=== PATIENT | female | born 1950 | race Caucasian/White ===

== ENCOUNTER → 2016-08-03 | Outpatient (CLI) | payer OTHER ==
[~2016-08-03] VITALS: Ht 154.9 cm; Wt 107.8 kg
[~2016-08-03] MED LIST: AMITRIPTYLINE H10 M3 PO; APAP500 PO; ASPIR 8181 MG PO; BRILINTA90 MG PO; CELEBREX 200 M200 M1 PO; CELEXA20 MG PO; COENZYME Q10200 M2 PO; COMPOUND CREAM; COREG6.25 MG PO; DICLOFENAC SOD100 GM TP; FUROSEMIDE 20 M20 M1 PO; HYDROCODONE-AP1 EAC2 PO; KEFLEX250 MG PO; LEXAPRO20 MG PO; LIPITOR 20 MG T20 M1 PO; LYRICA150 MG PO; MELATONIN1 MG PO; MOBIC15 MG; MOBIC15 MG PO; MS CONTIN 30 MG30 M1 PO; MS CONTIN15 MG PO; MUCINEX TA600 MG/TA2 PO; OXYCODONE-APAP1 EAC6 PO; PERCOCET 7.5-31 EACH; PERCOCET 7.5-31 EACH PO; PRILOSEC 20 MG20 MG PO; SINGULAIR 10 MG10 M1 PO; TORSEMIDE5 MG PO; TOVIAZ4 M1 PO; VENTOLIN HFA 1818 GM INH; VESICARE10 M1 PO; VOLTAREN50 MG PO
--- NOTE | ~2016-08-03 | HPC ---
[facility] [place] [address] PAIN MANAGEMENT CONSULTATION Name: MADDY HERNANDES Room #: REG Petros Randall#: [id number] Admission: 08/03/16 Attend Phys: Marcos Angeles DO Discharge: Date of : 48 Report #: [id number] THIS REPORT FOR: //name// CC: Gerardo Angeles The patient is a 66-year-old female being treated for lumbar radiculopathy, DJD affecting right knee, requiring complex medication management. The patient was last seen in the pain clinic by my partner, Dr. Pulido in my absence, 07/07/2016, he renewed her Voltaren gel and Percocet 7.5/325 one tablet 3-4 times a day, limit 100 tablets for 30 days. Last seen in the pain clinic 04/17/2016. She returns to pain clinic today noting medications are providing sufficient analgesia to participate in activities of daily living. Last urine drug screen 04/17/2016, was positive for prescribed medication including oxycodone, citalopram, diclofenac, and dextromethorphan. The patient notes while medications are assisting with chronic pain issues, specifically right knee, she would like to repeat a series of Synvisc injections, which we had accomplished about 3 years ago with overall efficacy. She does have lumbar radicular pain and has a spinal cord stimulator, which is helpful. She has had some chronic osteomyelitis in the right ankle, multiple surgeries and now limited range of motion, this was from about the year 1999. Today; however, she does have an intercurrent urinary tract infection and is on Keflex presently. Overall, the patient rates the pain as 7/10 on the knee, 2/10 on the ankle. We reviewed the fact that opiate medications are being used to provide analgesia adequate to support activities of daily living, not attempting to achieve a specific pain score on the 0-10 Visual Analog Scale. The current opiate medications are providing sufficient analgesia to allow the patient to participate in activities of daily living. The patient is not exhibiting any aberrant behavior suggestive of drug diversion. The patient is not having any adverse reactions to medications. The patient is not suffering from daytime somnolence or mental acuity changes. The patient is managing opiate-induced constipation with appropriate smhp-gqg-irmqmhd agents and dietary considerations. The patient was counseled on concern for caution with operating a motor vehicle while using opiate medications. A physical exam was performed and the patient's functional status was evaluated. All patients with back pain were advised against the bed rest greater than 4 days and were advised to return to normal activities. Pain score assessment was noted and the treatment plan was reviewed with the patient. All current medications, both prescribed and OTC were reviewed and reconciled on the electronic medical record. Tobacco screening was accomplished and smoking cessation was advised when indicated. BMI was noted and diet/exercise modification was recommended for all patients following outside normal [address] [address] PAIN MANAGEMENT CONSULTATION Name: MADDY HERNANDES Room #: REG VIOLA Randall#: [id number] Admission: 08/03/16 Attend Phys: Marcos Angeles DO Discharge: Date of : 48 Report #: [id number] parameters. I reviewed with the patient today their responsibilities to safeguard prescription medications, reviewed their responsibility to utilize medications only as prescribed by the physician. They are to seek and receive pain medications only from 1 physician group ([facility]). They are to use 1 pharmacy and keep the clinic informed if they change pharmacies. Their responsibilities include making followup visits in a timely fashion and to avoid abrupt discontinuation of medication usage. Their responsibilities further include bringing their medications (bottles from the pharmacy with residual pills) to the visit for possible confirmation of pill counts and the patient understands it is their responsibility to submit to random drug screens to ensure both that the medications prescribed are present, and that no other controlled substances are present. All prescriptions provided today were generated electronically. PHYSICAL EXAMINATION: Shows a 66-year-old female, BMI is 44.9 kg/m2. Vital signs stable as noted on the EMR. Alert and oriented to person, place, and time, judged to be a reasonable historian, complaining of pain in the right knee. Physical exam shows no ballotable edema, ligaments are intact, there is some crepitance with the deviation of the patella. ASSESSMENT: Symptomatic lumbar radiculopathy, degenerative joint disease affecting right knee, requiring complex medication management. RECOMMENDATION: 1. After discussion, we have elected to continue Percocet 7.5/325 one tablet 3-4 times a day, limit 100 tablets for 30 days, taken the liberty of writing for three prescriptions to release today, 4 weeks, and 8 weeks. 2. We will plan on moving forward with repeat Synvisc injection series starting next week. Prior injection in 2012 afforded excellent relief. <ELECTRONICALLY SIGNED> By: Marcos Angeles DO 08/05/16 0729 [id number] Marcos Angeles DO /nt
[2016-08-03 11:31] VITALS: BP 125/76
== END | disposition home or self-care (01) ==
LOC: PAIN 07:05
DX: M17.11 Unilateral primary osteoarthritis, right knee (principal); M54.16 Radiculopathy, lumbar region; G89.29 Other chronic pain

== ENCOUNTER → 2016-08-10 | Outpatient (CLI) | payer OTHER ==
[~2016-08-10] VITALS: Ht 154.9 cm; Wt 109.8 kg
--- NOTE | ~2016-08-10 | HPC ---
[facility] [place] [address] PAIN MANAGEMENT CONSULTATION Name: MADDY HERNANDES Room #: REG [facility] Prakash#: [id number] Admission: 08/10/16 Attend Phys: Marcos Angeles DO Discharge: Date of : 48 Report #: [id number] THIS REPORT FOR: //name// CC: Gerardo Angeles The patient is a very pleasant 66-year-old female, well known to the pain clinic, being treated for lumbar radiculopathy, DJD affecting right knee, chronic pain syndrome requiring complex medication management. She has been stable on baseline dose of medication for some time. She had a series of 3 Synvisc injections in 2012 in her right knee with significant overall improvement of pain. Pain has began to recur. At last visit, we renewed the patient's chronic pain medications and elected to proceed with a series of 3 Synvisc injections on that right knee again. ASSESSMENT: Symptomatic degenerative joint disease, right knee, subjective pain score is about a 4-6 on a 0-10 visual analog scale. PROCEDURE: Right knee injection under fluoroscopy, Synvisc #1. DESCRIPTION OF PROCEDURE: After risk and benefits were discussed including risk of infection and increased knee pain, the patient wished to proceed. She was taken to the fluoroscopy suite, placed in the supine position with a bolster under the right knee. Wide surgical prep and drape was accomplished. Skin wheal with Xylocaine was raised. A 20-gauge Angiocath was placed from a superior lateral point of origin in an inferior medial trajectory under the patella. Negative aspiration was accomplished. 2 mL of Synvisc (hyaline G-F 20) was injected. The Angiocath was removed, area was cleansed and Band-Aids applied. The patient was monitored for an appropriate period of time, discharged in good and stable condition. Told to use ice to the area today. Watch for signs of infection. Follow up in 1 week for #2 in a series of 3. <ELECTRONICALLY SIGNED> By: Marcos Angeles DO 08/14/16 0811 [id number] Marcos Angeles DO /nt
[2016-08-10 10:17] VITALS: BP 128/60
== END | disposition home or self-care (01) ==
LOC: PAIN 07:01
DX: M17.11 Unilateral primary osteoarthritis, right knee (principal); M54.16 Radiculopathy, lumbar region; G89.4 Chronic pain syndrome

== ENCOUNTER → 2016-11-20 | Outpatient (CLI) | payer OTHER ==
[~2016-11-20] VITALS: Ht 154.9 cm; Wt 103.4 kg
[~2016-11-20] MED LIST changes: +MOBIC7.5 MG PO; +OXYBUTYNIN CHLO15 MG PO
--- NOTE | ~2016-11-20 | HPC ---
[facility] [address] [address] PAIN MANAGEMENT CONSULTATION Name: MADDY HERNANDES Room #: REG [facility] Margarito.#: [id number] Admission: 11/20/16 Attend Phys: Marcos Angeles DO Discharge: Date of : 49 Report #: [id number] THIS REPORT FOR: //name// CC: Gerardo Angeles DATE OF SERVICE: 11/20/2016 The patient is a 66-year-old female being treated for chronic DJD bilateral knees, status post left total knee arthroplasty with ongoing right knee degenerative joint disease. We did a series of 3 Synvisc injections, the last one being 08/24/2016 on the right knee with unfortunately only short term relief. Returns to pain clinic today. She continues to take Percocet 7.5/325 one tablet 3-4 times a day, 100 tablets for 30 days, provide sufficient analgesia to participate in activities of daily living. Subjective pain score is 3-4/10. Last urine drug screen in April was positive for prescribed medications. Returns to pain clinic today noting she is having increasing pain in the left knee. She had a total knee arthroplasty 6 years ago, had progressed from wheelchair to walker to cane and was actually doing fairly well for cane in 2-3 years, but about 3 years ago, pain got significantly worse. She has been using a walker since that time. On physical exam, she has passive full extension of the left leg, but only actively, she can extend the lower extremity about 45 degrees. She follows up with her orthopedist and feels that she may have disruption over the quadriceps muscles. She has a followup appointment at Orthopedics since January. Otherwise, she notes pain continues 3-4 on a 0-10 visual analog scale. She uses a spinal cord stimulator for chronic axial back pain. Pain medication helps with peripheral pain. PHYSICAL EXAMINATION: Shows 66-year-old female, obese, with a BMI of 43.1 kilograms per meter squared. Blood pressure and vital signs are stable as noted on the EMR. She is in a wheelchair, alert and oriented to person, place, and time, judged to be a reasonable historian. Again, left leg does show diminished active extension, right knee still has pain with movement. We reviewed the fact that opiate medications are being used to provide analgesia adequate to support activities of daily living, not attempting to achieve a specific pain score on the 0-10 Visual Analog Scale. The current opiate medications are providing sufficient analgesia to allow the patient to participate in activities of daily living. The patient is not exhibiting any aberrant behavior suggestive of drug diversion. [place] [address] PAIN MANAGEMENT CONSULTATION Name: MADDY HERNANDES Room #: REG [facility] Prakash#: [id number] Admission: 11/20/16 Attend Phys: Marcos Angeles DO Discharge: Date of : 48 Report #: [id number] adverse reactions to medications. The patient is not suffering from daytime somnolence or mental acuity changes. The patient is managing opiate-induced constipation with appropriate erwd-bdz-msnwyxn agents and dietary considerations. The patient was counseled on concern for caution with operating a motor vehicle while using opiate medications. A physical exam was performed and the patient's functional status was evaluated. All patients with back pain were advised against the bed rest greater than 4 days and were advised to return to normal activities. Pain score assessment was noted and the treatment plan was reviewed with the patient. All current medications, both prescribed and OTC were reviewed and reconciled on the electronic medical record. Tobacco screening was accomplished and smoking cessation was advised when indicated. BMI was noted and diet/exercise modification was recommended for all patients following outside normal parameters. I reviewed with the patient today their responsibilities to safeguard prescription medications, reviewed their responsibility to utilize medications only as prescribed by the physician. They are to seek and receive pain medications only from 1 physician group ( [facility]). They are to use 1 pharmacy and keep the clinic informed if they change pharmacies. Their responsibilities include making followup visits in a timely fashion and to avoid abrupt discontinuation of medication usage. Their responsibilities further include bringing their medications (bottles from the pharmacy with residual pills) to the visit for possible confirmation of pill counts and the patient understands it is their responsibility to submit to random drug screens to ensure both that the medications prescribed are present, and that no other controlled substances are present. All prescriptions provided today were generated electronically. ASSESSMENT: Symptomatic degenerative joint disease, bilateral knees; chronic pain syndrome; lumbar radiculopathy with neuropathic pain component requiring complex medication management. RECOMMENDATIONS: 1. Continue spinal cord stimulator unchanged. 2. Continue Percocet 7.5/325 one tablet 3-4 times a day, limit 100 tablets for 30 days. Follow up with Orthopedics at . I will be happy to see her on an as needed basis. <ELECTRONICALLY SIGNED> By: Marcos Angeles DO 11/25/16 0758 1205 1925 Marcos Angeles DO /nt
[2016-11-20 10:59] VITALS: BP 120/65
== END ==
LOC: PAIN 07:05
DX: M17.0 Bilateral primary osteoarthritis of knee (principal); M54.16 Radiculopathy, lumbar region; G89.4 Chronic pain syndrome; Z96.89 Presence of other specified functional implants; Z88.8 Allergy status to other drugs, medicaments and biological substances

== ENCOUNTER → 2017-02-19 | Outpatient (CLI) | payer OTHER ==
[~2017-02-19] VITALS: Ht 154.9 cm; Wt 115.1 kg
[~2017-02-19] MED LIST changes: +CIPRO500 MG PO
--- NOTE | ~2017-02-19 | HPC ---
[facility] [place] [address] PAIN MANAGEMENT CONSULTATION Name: MADDY HERNANDES Room #: REG [facility] Margarito.#: [id number] Admission: 02/19/17 Attend Phys: Marcos Angeles DO Discharge: Date of : 49 Report #: [id number] THIS REPORT FOR: //name// CC: Gerardo Angeles HISTORY OF PRESENT ILLNESS: The patient is a very pleasant 66-year-old female being treated for DJD bilateral knees, axial back pain requiring complex medication management. Last seen in the pain clinic 11/20/2016, continue Percocet 7.5/325 one tablet 3-4 times a day. Last urine drug screen 04/17/2016 was positive for prescribed medications. She returns to pain clinic today. She had an appointment to see orthopedic at regarding her right knee (status post left total knee arthroplasty in the distant past). Unfortunately, this got canceled, that is her surgeon relocated. She has, however, seen Dr. Solares at [facility]. He has suggested that there is still some problems with a left total knee arthroplasty, she is unable to fully extend the leg. He feels that there may be some problem with patellar and/or infrapatellar ligament. They are tentatively planning to revise the left knee arthroplasty and then move forward with the right total knee arthroplasty at some distant point. Complicating matter is however, is the fact that around 01/12/2017, patient fell, developed lesions on her right ankle anterior aspect. Apparently, she tripped over her walker and sounds like that the wound may have been contaminated with some debris. It has now been 6 weeks she still has an open wound. They cultured the wound recently and in the cultured they found some shard plastic. She currently is on antibiotic ( ciprofloxacin 500 mg b.i.d.) I reviewed the lesion today, remains open with a kelsey modestly purulent discharge. I am very concerned that this is still secondary infected and given history may actually still have some contaminant inside. Strongly suggest she follow up with the wound clinic. I would suspect that the orthopedic surgeon will want her to have several weeks of zero drainage on no antibiotics to ensure that there is no residual infection of the ankle before he would consider revising that left total knee arthroplasty. We talked about this at length today. She is seen in the company of her who is supportive. She was seen for prolonged visit from 12:58-13:25. Greater than 50% of this 25 plus minute visit was spent counseling the patient, reviewing therapeutic options, discussing risks and benefits of proceed with surgery. Again, my biggest concern presently is getting that small lesion of the right ankle anterior aspect cleared up. We reviewed the fact that opiate medications are being used to provide analgesia [address] [address] PAIN MANAGEMENT CONSULTATION Name: MADDY HERNANDES Room #: REG VIOLA Randall#: [id number] Admission: 02/19/17 Attend Phys: Marcos Angeles DO Discharge: Date of : 48 Report #: [id number] adequate to support activities of daily living, not attempting to achieve a specific pain score on the 0-10 Visual Analog Scale. The current opiate medications are providing sufficient analgesia to allow the patient to participate in activities of daily living. The patient is not exhibiting any aberrant behavior suggestive of drug diversion. The patient is not having any adverse reactions to medications. The patient is not suffering from daytime somnolence or mental acuity changes. The patient is managing opiate-induced constipation with appropriate jriy-tgh-bmxqfpm agents and dietary considerations. The patient was counseled on concern for caution with operating a motor vehicle while using opiate medications. A physical exam was performed and the patient's functional status was evaluated. All patients with back pain were advised against the bed rest greater than 4 days and were advised to return to normal activities. Pain score assessment was noted and the treatment plan was reviewed with the patient. All current medications, both prescribed and OTC were reviewed and reconciled on the electronic medical record. Tobacco screening was accomplished and smoking cessation was advised when indicated. BMI was noted and diet/exercise modification was recommended for all patients following outside normal parameters. I reviewed with the patient today their responsibilities to safeguard prescription medications, reviewed their responsibility to utilize medications only as prescribed by the physician. They are to seek and receive pain medications only from 1 physician group ( [facility]). They are to use 1 pharmacy and keep the clinic informed if they change pharmacies. Their responsibilities include making followup visits in a timely fashion and to avoid abrupt discontinuation of medication usage. Their responsibilities further include bringing their medications (bottles from the pharmacy with residual pills) to the visit for possible confirmation of pill counts and the patient understands it is their responsibility to submit to random drug screens to ensure both that the medications prescribed are present, and that no other controlled substances are present. All prescriptions provided today were generated electronically. Physical exam is otherwise unchanged, 66-year-old female, quite obese with a BMI of kilograms per meter squared. Vital signs are otherwise stable. She is afebrile. Again, still draining is somewhat purulent substance from the right ankle. Albeit, the lesion itself is small less than a centimeter. Moderately obese woman, I was unable to palpate any adenopathy. Discharged in good stable condition today. I have taken the liberty of renewing her scheduled II narcotic, Percocet 7.5/325 one tablet up to 3-4 times a day, [facility] [address] [place] [address] PAIN MANAGEMENT CONSULTATION Name: MADDY HERNANDES Room #: REG [facility] Prakash#: [id number] Admission: 02/19/17 Attend Phys: Marcos Angeles DO Discharge: Date of : 48 Report #: [id number] limit 100 tablets for 30 days. We will follow up in 3 months for reevaluation, earlier if needed. <ELECTRONICALLY SIGNED> By: Marcos Angeles DO 02/22/17 0908 1320 1350 Marcos Angeles DO /nt
[2017-02-19 12:49] VITALS: BP 143/71
== END | disposition home or self-care (01) ==
LOC: PAIN 07:22
DX: M17.0 Bilateral primary osteoarthritis of knee (principal); Z79.899 Other long term (current) drug therapy

== ENCOUNTER → 2017-06-28 | Outpatient (CLI) | payer OTHER ==
[~2017-06-28] VITALS: Ht 154.9 cm; Wt 71.0 kg
--- NOTE | ~2017-06-28 | HPC ---
[facility] [place] [address] PAIN MANAGEMENT CONSULTATION Name: MADDY HERNANDES Room #: REG VIOLA Randall#: [id number] Admission: 06/28/17 Attend Phys: Marcos Angeles DO Discharge: Date of : 48 Report #: [id number] THIS REPORT FOR: //name// CC: Gerardo Angeles HISTORY OF PRESENT ILLNESS: The patient is a 66-year-old female typically treated for osteoarthritis affecting bilateral knees, right greater than left (status post left total knee arthroplasty with still ongoing decreased range of motion), lumbar radiculopathy requiring high risk complex medication management. Last visit 06/09/2017, she saw my partner, Dr. Jaylen Pulido in my absence. I have last seen her back in February. He returns to pain clinic today noting pain medications continue to be helpful, she takes Percocet 7.5/325 one tablet 3-4 times a day, uses Voltaren gel topically. Left knee still has diminished range of motion to full extension, about 30 degrees off of complete 180-degree extension. Right leg has better range of motion, but ongoing pain in the knee, there is a little ballotable edema. The patient rates subjective pain score of 4 on a VAS with current medication. No problems with daytime somnolence, mental acuity changes or constipation. We reviewed the fact that opiate medications are being used to provide analgesia adequate to support activities of daily living, not attempting to achieve a specific pain score on the 0-10 Visual Analog Scale. The current opiate medications are providing sufficient analgesia to allow the patient to participate in activities of daily living. The patient is not exhibiting any aberrant behavior suggestive of drug diversion. The patient is not having any adverse reactions to medications. The patient is not suffering from daytime somnolence or mental acuity changes. The patient is managing opiate-induced constipation with appropriate uvrp-xzf-beydevn agents and dietary considerations. The patient was counseled on concern for caution with operating a motor vehicle while using opiate medications. A physical exam was performed and the patient's functional status was evaluated. All patients with back pain were advised against the bed rest greater than 4 days and were advised to return to normal activities. Pain score assessment was noted and the treatment plan was reviewed with the patient. All current medications, both prescribed and OTC were reviewed and reconciled on the electronic medical record. Tobacco screening was accomplished and smoking cessation was advised when indicated. BMI was noted and diet/exercise modification was recommended for all patients following outside normal parameters. [address] [address] PAIN MANAGEMENT CONSULTATION Name: MADDY HERNANDES [facility]: [facility] [id number] Admission: 06/28/17 Attend Phys: Marcos Angeles DO Discharge: Date of : 48 Report #: [id number] I reviewed with the patient today their responsibilities to safeguard prescription medications, reviewed their responsibility to utilize medications only as prescribed by the physician. They are to seek and receive pain medications only from 1 physician group ( [facility]). They are to use 1 pharmacy and keep the clinic informed if they change pharmacies. Their responsibilities include making followup visits in a timely fashion and to avoid abrupt discontinuation of medication usage. Their responsibilities further include bringing their medications (bottles from the pharmacy with residual pills) to the visit for possible confirmation of pill counts and the patient understands it is their responsibility to submit to random drug screens to ensure both that the medications prescribed are present, and that no other controlled substances are present. All prescriptions provided today were generated electronically. ASSESSMENT: 1. Osteoarthritis, bilateral knees, right greater than left. 2. Chronic pain syndrome requiring high risk medication management. 3. History of lumbar radiculopathy record. Last random drug screen was 04/2016. We did obtain a new buccal random drug screen today, no aberrant previous history of drug diversion. We also talked about continuing with MiraLax for opiate-induced constipation. Discharged in good and stable condition. The patient was seen for prolonged visit, greater than 50% of 25-minute visit was spent counseling the patient, reviewing the opiate consent to treat contract, getting the buccal drug swab and counseling regarding current medications. <ELECTRONICALLY SIGNED> By: Marcos Angeles DO 06/30/17 0808 [id number] [id number] Marcos Angeles DO /nt
[2017-06-28 10:38] VITALS: BP 157/87
== END ==
LOC: PAIN 07:07
DX: M17.0 Bilateral primary osteoarthritis of knee (principal); G89.4 Chronic pain syndrome; M54.16 Radiculopathy, lumbar region; Z79.899 Other long term (current) drug therapy

== ENCOUNTER → 2017-10-01 | Outpatient (CLI) | payer OTHER ==
[~2017-10-01] VITALS: Ht 154.9 cm; Wt 119.6 kg
[~2017-10-01] MED LIST changes: +PERCOCET 10-321 EAC1 PO; +PERCOCET 10-321 EACH PO; +PROTONIX40 M1 PO; +TERBINAFINE HC250 MG PO
--- NOTE | ~2017-10-01 | HPC ---
[facility] [place] [address] PAIN MANAGEMENT CONSULTATION Name: MADDY HERNANDES Room #: REG [facility] Margarito.#: [id number] Admission: 10/01/17 Attend Phys: Marcos Angeles DO Discharge: Date of : 49 Report #: [id number] THIS REPORT FOR: //name// CC: Gerardo Angeles DATE OF SERVICE: 10/01/2017 The patient is a 67-year-old female, last seen in pain clinic on 06/28/2017, being treated for osteoarthritis, status post left total knee arthroplasty, has osteoarthritis in the right knee, lumbar radiculopathy requiring complex medication management. Last random drug screen on 06/28/2017 was positive for prescribed medications (that was last visit). She returns to pain clinic today noting pain is a 6-7 on a VAS. Uses a wheelchair to get around due to ongoing pain in the low back and both knees. Notes pain is exacerbated with any weightbearing. She does have a spinal cord stimulator, which helps to some degree. Functional assessment tool score is quite high at 57/70. She is at low risk for opiate diversion, 1/. She signed our opiate consent to treat contract on 01/30/2016. PHYSICAL EXAMINATION: Otherwise shows an obese 67-year-old female, BMI is 49.8 kilograms per meter squared. She is in a wheelchair. Pain across the knees, difficulty with ambulation. We talked about possibly considering a genicular nerve block for primary right lower extremity pain (again, status post left total knee arthroplasty with some improvement of osteoarthritis pain). Given multiple health concerns including morbid obesity, pulmonary compromise, dyslipidemia and hypertension, she is not an excellent surgical candidate for right knee total knee arthroplasty. We reviewed the fact that opiate medications are being used to provide analgesia adequate to support activities of daily living, not attempting to achieve a specific pain score on the 0-10 Visual Analog Scale. The current opiate medications are providing sufficient analgesia to allow the patient to participate in activities of daily living. The patient is not exhibiting any aberrant behavior suggestive of drug diversion. The patient is not having any adverse reactions to medications. The patient is not suffering from daytime somnolence or mental acuity changes. The patient is managing opiate-induced constipation with appropriate yxdk-dst-kqkiyxz agents and dietary considerations. The patient was counseled on concern for caution with operating a motor vehicle while using opiate medications. A physical exam was performed and the patient's functional status was evaluated. All patients with back pain were advised against the bed rest greater than 4 days and were advised to return to normal activities. Pain score assessment was noted and the treatment plan was reviewed with the patient. All current [address] [address] PAIN MANAGEMENT CONSULTATION Name: GRETAMADDYBERYL PARKINSONE Room #: REG [facility] Randall#: [id number] Admission: 10/01/17 Attend Phys: Marcos Angeles DO Discharge: Date of : 48 Report #: [id number] medications, both prescribed and OTC were reviewed and reconciled on the electronic medical record. Tobacco screening was accomplished and smoking cessation was advised when indicated. BMI was noted and diet/exercise modification was recommended for all patients following outside normal parameters. I reviewed with the patient today their responsibilities to safeguard prescription medications, reviewed their responsibility to utilize medications only as prescribed by the physician. They are to seek and receive pain medications only from 1 physician group ( [facility]). They are to use 1 pharmacy and keep the clinic informed if they change pharmacies. Their responsibilities include making followup visits in a timely fashion and to avoid abrupt discontinuation of medication usage. Their responsibilities further include bringing their medications (bottles from the pharmacy with residual pills) to the visit for possible confirmation of pill counts and the patient understands it is their responsibility to submit to random drug screens to ensure both that the medications prescribed are present, and that no other controlled substances are present. All prescriptions provided today were generated electronically. RECOMMENDATION: Today, we have elected to increase Percocet somewhat. She tells me she is having trouble with inter-dose failure and impact on functional status. Currently taking 3 or 4 Percocet 7.5/325, averaging about 26 mg of oxycodone or roughly 40 milliequivalents of morphine. We have elected to increase slightly to Percocet 10/325 tablet, limit 3-4 a day, increasing to about 35 mg of oxycodone on average (52.5 milliequivalents of morphine a day). We talked at length about concerns for opiate-induced constipation, hyperalgesia, tolerance and habituation. We talked about moving forward with genicular nerve block if slight increase in opiate today does not increase functional ability. Discharged in good and stable condition after approximately 25-minute visit, spent greater than 50% of time counseling the patient. Again, we have agreed to reluctantly increase opiate about 33% overall. <ELECTRONICALLY SIGNED> By: Marcos Angeles DO 10/04/17 0813 [id number] Marcos Angeles DO /nt
[2017-10-01 10:39] VITALS: BP 143/76
== END ==
LOC: PAIN 06:56
DX: M17.0 Bilateral primary osteoarthritis of knee (principal); M54.16 Radiculopathy, lumbar region; Z79.899 Other long term (current) drug therapy

== ENCOUNTER → 2017-10-29 | Outpatient (CLI) | payer OTHER ==
[~2017-10-29] VITALS: Ht 154.9 cm; Wt 118.8 kg
[~2017-10-29] MED LIST changes: -PERCOCET 10-321 EAC1 PO
--- NOTE | ~2017-10-29 | HPC ---
[facility] [place] [address] PAIN MANAGEMENT CONSULTATION Name: MADDY HERNANDES Room #: REG [facility] Margarito.#: [id number] Admission: 10/29/17 Attend Phys: Marcos Angeles DO Discharge: Date of : 48 Report #: [id number] THIS REPORT FOR: //name// CC: Gerardo Angeles The patient is a 67-year-old female typically treated for osteoarthritis, status post left total knee arthroplasty with ongoing pain in the right knee, lumbar radiculopathy requiring complex medication management. She has a spinal cord stimulator in place. Uses Percocet 7.5/325. We had increased to 10/325 at last visit. We had trialed a series of Synvisc injections early last year, July through August. Really no significant improvement of pain. She has ongoing pain in the right knee that significantly interferes with function. The patient rates her pain a 4 on a visual analog scale. She notes she can walk for 15-20 minutes at best without sitting down. Pain becomes quite problematic and takes about 2 hours to "settle down" after walking or standing. Percocet helps. Spinal cord stimulator had been off for a period of time, it is now charged and on. This helps with axial back and radicular pain. The knee pain remains problematic. PHYSICAL EXAMINATION: Shows pleasant 67-year-old female, morbidly obese with a BMI of 49.5 kilograms per meter squared. Blood pressure is 125/75, pulse 77, respirations 16. Rises from chair using armrest. Antalgic gait favoring the right knee. Given body morphology, difficult to palpate if there is ballottable edema in the knee, but ligaments do appear to be intact. Diffuse axial back pain generally well controlled. We reviewed the fact that opiate medications are being used to provide analgesia adequate to support activities of daily living, not attempting to achieve a specific pain score on the 0-10 Visual Analog Scale. The current opiate medications are providing sufficient analgesia to allow the patient to participate in activities of daily living. The patient is not exhibiting any aberrant behavior suggestive of drug diversion. The patient is not having any adverse reactions to medications. The patient is not suffering from daytime somnolence or mental acuity changes. The patient is managing opiate-induced constipation with appropriate oaoq-nqk-optggmz agents and dietary considerations. The patient was counseled on concern for caution with operating a motor vehicle while using opiate medications. A physical exam was performed and the patient's functional status was evaluated. All patients with back pain were advised against the bed rest greater than 4 days and were advised to return to normal activities. Pain score assessment was noted and the treatment plan was reviewed with the patient. All current medications, both prescribed and OTC were reviewed and reconciled on the electronic medical record. Tobacco screening was accomplished and smoking cessation was advised when indicated. BMI was noted and diet/[place] [address] PAIN MANAGEMENT CONSULTATION Name: MADDY HERNANDES Room #: REG [facility] Randall#: [id number] Admission: 10/29/17 Attend Phys: Marcos Angeles DO Discharge: Date of : 48 Report #: [id number] modification was recommended for all patients following outside normal parameters. I reviewed with the patient today their responsibilities to safeguard prescription medications, reviewed their responsibility to utilize medications only as prescribed by the physician. They are to seek and receive pain medications only from 1 physician group ( [facility]). They are to use 1 pharmacy and keep the clinic informed if they change pharmacies. Their responsibilities include making followup visits in a timely fashion and to avoid abrupt discontinuation of medication usage. Their responsibilities further include bringing their medications (bottles from the pharmacy with residual pills) to the visit for possible confirmation of pill counts and the patient understands it is their responsibility to submit to random drug screens to ensure both that the medications prescribed are present, and that no other controlled substances are present. All prescriptions provided today were generated electronically. ASSESSMENT: Degenerative joint disease, right knee, status post left total knee arthroplasty axial back pain, chronic pain syndrome requiring complex medication management. RECOMMENDATION: 1. We will continue Percocet 10/325 for 1 more month, we will trial a genicular nerve block. If this affords transient relief, we will consider radiofrequency neurolysis. If this affords ongoing relief, we will try and wean back to 7.5/325 Percocet. 2. Chronic knee pain, right knee, has failed conservative therapy. We will trial a genicular nerve block (3 nerves, superior medial genicular nerve, superior lateral genicular nerve, inferior medial genicular nerve, all under fluoroscopy today). 3. Continue Voltaren gel topical. We wrote for generic as her insurance company stopped paying for this. I pointed out that this drug is available over the counter in [place]. If she is having a hard time getting it covered with insurance, she may consider looking online from a [place] pharmacy. I have taken the liberty of writing for 1 month of current medication. Follow up in 1 week after interventional therapy today. ASSESSMENT: Degenerative joint disease, osteoarthritis, right knee. PROCEDURE: Right knee genicular nerve block under fluoroscopy. PROCEDURE NOTE: After informed consent was obtained, the patient was taken to the fluoroscopy suite, placed in supine position. Skin overlying the right knee was cleansed with ChloraPrep. Skin wheal with Xylocaine was raised x 3. A 6-inch 22-gauge Chiba needle was placed to contact the medial distal diaphysis [facility] [address] [place] [address] PAIN MANAGEMENT CONSULTATION Name: GRETAMADDY MOLINA Room #: REG [facility] Prakash#: [id number] Admission: 10/29/17 Attend Phys: Marcos Angeles DO Discharge: Date of : 48 Report #: [id number] of the femur. A second needle was placed to contact the lateral distal diaphysis of the right femur. Third needle was placed to contact the proximal medial diaphysis of the tibia. AP and lateral projections showed good needle placement at midshaft. 1 mL of a 50:50 mix of 0.5% preservative-free bupivacaine plus 1% preservative-free Xylocaine was injected at each site. All 3 needles were removed, area was cleansed, Band-Aids applied. The patient monitored for an appropriate period of time, discharged in good and stable condition noting significant improvement of baseline pain, noting at least 50% overall improvement. On discharge, she will call the nurse line and leave an hourly score for the next 3 hours. If she has ongoing 50%-60% relief, we will consider radiofrequency neurolysis at next visit. Discharged in good and stable condition. <ELECTRONICALLY SIGNED> By: Marcos Angeles DO 11/01/17 0943 [id number] Marcos Angeles DO /nt
[2017-10-29 12:50] VITALS: BP 125/75
== END | disposition home or self-care (01) ==
LOC: PAIN 07:18
DX: M17.11 Unilateral primary osteoarthritis, right knee (principal); G89.4 Chronic pain syndrome; Z98.890 Other specified postprocedural states; Z79.899 Other long term (current) drug therapy; E66.01 Morbid (severe) obesity due to excess calories; Z68.42 Body mass index [BMI] 45.0-49.9, adult

== ENCOUNTER → 2017-11-04 | Outpatient (CLI) | payer OTHER ==
[~2017-11-04] VITALS: Ht 154.9 cm; Wt 118.8 kg
--- NOTE | ~2017-11-04 | HPC ---
[facility] [address] [place] [address] PAIN MANAGEMENT CONSULTATION Name: MADDY HERNANDES Room #: REG Petros Randall#: [id number] Admission: 11/04/17 Attend Phys: Marcos Angeles DO Discharge: Date of : 48 Report #: [id number] THIS REPORT FOR: //name// CC: Gerardo Angeles The patient is a very pleasant 67-year-old female, long known to the pain clinic, being treated for osteoarthritis, bilateral knees, status post left total knee arthroplasty with ongoing right knee pain, chronic axial back pain. Has a spinal cord stimulator and requires complex medication management including Percocet 10/325 one tablet up to 4 times a day. She has been stable on this medication, in fact she does not require renewal until middle of December. Last visit, we did genicular nerve block on the right knee with excellent relief for short term, the patient notes she had greater than 60% relief for 4 hours and then pain returned. She wishes to proceed with genicular nerve radiofrequency neurolysis today. She understands risks to be lack of efficacy and increased pain. ASSESSMENT: Right knee osteoarthritis, chronic pain requiring complex medication management. RECOMMENDATION: Proceed with radiofrequency neurolysis, genicular nerve x 3, right knee, superior medial, superior lateral and inferior medial genicular nerve. PROCEDURE NOTE: After written informed consent was obtained, the patient was taken to the fluoroscopy suite and placed in prone position. After sterile prep and drape, skin wheal with Xylocaine was raised x 3. A 10 mm RFK needle was placed to contact the diaphysis of the distal femur, medial and lateral and third needle was placed to contact the proximal diaphysis of the tibia in the medial aspect. AP and lateral projections showed good needle placement, mid shaft. Initial impedance was noted. Sensory testing did not produce distal movement. A 1 mL of 1% preservative-free Xylocaine was injected at each site. All 3 needles then heated to 80 degrees centigrade for 90 seconds. A 30 mg of triamcinolone plus 1 mL of 0.5% preservative-free bupivacaine was injected at all 3 sites. Needle was removed. The area was cleansed, Band-Aids applied. Fluoroscopy time was under 20 seconds. The patient monitored for an appropriate period of time, discharged in good and stable condition. Told to use ice the area today, not to perform cardiac rehab tomorrow, but resume next week. Follow up in December for medication renewal. <ELECTRONICALLY SIGNED> By: Marcos Angeles DO 11/05/17 0922 [id number] aMrcos Angeles DO /nt
[2017-11-04 14:03] VITALS: BP 123/76
== END | disposition home or self-care (01) ==
LOC: PAIN 07:02
DX: M17.11 Unilateral primary osteoarthritis, right knee (principal); G89.29 Other chronic pain

== ENCOUNTER → 2018-02-22 | Outpatient (CLI) | payer OTHER ==
[~2018-02-22] VITALS: Ht 154.9 cm; Wt 119.0 kg
[~2018-02-22] MED LIST changes: +PERCOCET 10-321 EAC1 PO
--- NOTE | ~2018-02-22 | HPC ---
[facility] [place] [address] PAIN MANAGEMENT CONSULTATION Name: MADDY HERNANDES [id number] Admission: 02/22/18 Attend Phys: Ed Angeles DO Discharge: Date of : 48 Report #: [id number] THIS REPORT FOR: //name// CC: Ed Solorio DO DATE OF SERVICE: 02/22/2018 CHIEF COMPLAINT: Bilateral knee pain, chronic axial back pain. HISTORY OF PRESENT ILLNESS: As you know, the patient is a 67-year-old female who suffers from chronic bilateral knee pain, chronic low back pain. She has a spinal cord stimulator in place for chronic axial back pain, which does provide some improvement. She has been advised by her orthopedic surgeon that she is a candidate to undergo right total knee arthroplasty, but she has to lose at least 50 pounds. The patient states she is having difficulty with losing any weight due to lack of ability to ambulate. She returns today in followup visit having been taking oxycodone 10 mg up to 4 times a day, total of 60 morphine equivalents on a daily basis. This places the patient at a higher level of opioid use concerning based on her lack of improvement and a pain report of 5/10. She has come back today for refill of medications. She indicates no change in medical history since our last visit. ALLERGIES: AMITRIPTYLINE, VESICARE, TOVIAZ. CURRENT MEDICATIONS: Percocet 10/325 one tab every 6 hours p.r.n. for pain, diclofenac gel apply topically up to three times a day, pantoprazole 40 mg once a day, terbinafine 250 mg once a day, oxybutynin ER 15 mg once a day, meloxicam 7.5 mg once a day, albuterol 2 puffs q. 4 hours p.r.n., Mucinex 600 mg every 12 hours, montelukast sodium 10 mg once a day, torsemide 5 mg morning one tab per day, melatonin 1 mg 3 tabs per day, atorvastatin 20 mg per day, carvedilol 6.25 mg twice a day, citalopram 20 mg 2 tabs per day, Coenzyme Q 200 mg once a day. SOCIAL HISTORY: The patient denies tobacco, alcohol, IV or illicit drug use. She is retired, retiring in 2001. She is accompanied by her who is present in room today. IMAGING: No new imaging available. PQRS: The patient has osteoarthritis of the right knee, low back, bilateral ankles. She is not treated for rheumatoid arthritis. She places pain intensity at 5/10. She is a fall risk, has had a fall in the last 3 months. She is treated for hypertension. She is not on blood thinner. She has been on opioids for longer than 6 weeks. She is at a low risk per our assessment tool for opioid abuse. [address] [address] PAIN MANAGEMENT CONSULTATION Name: MADDY HERNANDES Room #: REG VIOLA Randall#: [id number] Admission: 02/22/18 Attend Phys: Ed Angeles DO Discharge: Date of : 48 Report #: [id number] There is no concerning entries in the [facility] system nor concerning entries in the [place] pharmacy tracking program. PHYSICAL EXAMINATION: VITAL SIGNS: Blood pressure 144/80, pulse is 72, respiratory rate 20 and unlabored. The patient is 97% on room air. Height 5 feet 1 inch tall, weight 262.4 pounds, BMI calculated 49.6. GENERAL: Well-developed, well-nourished, well-hydrated, class 3, morbidly obese 67-year-old female. She appears her stated age, placing current pain score around 5/10. HEENT: Normocephalic, atraumatic. Pupils equal, round, reactive to light. Extraocular muscles are intact. NEUROLOGIC: Speech fluent. The patient deemed a good historian. LUNGS: Clear, no wheeze, rhonchi or rales. CARDIOVASCULAR: Regular. No appreciable gallop or rub. ABDOMEN: Soft. Severely obese, normoactive bowel sounds. EXTREMITIES: Show no clubbing, no cyanosis. MUSCULOSKELETAL: Lower extremity strength appears equal and symmetrical, some giveaway strength noted with active and passive range of motion of the right knee due to ongoing pain issues. The pain is elicited with standing from a seated position. Seated straight leg raising negative. Supine straight leg raising positive. Fabere's test negative. ASSESSMENT: 1. Chronic axial back pain. 2. Osteoarthritis of the right knee. 3. Chronic left knee pain. 4. Osteoarthritis of the lumbar spine. 5. Morbid obesity. 6. Opioid dependency. 7. Chronic intractable pain. PLAN: 1. The patient returns today in followup visit. We had a very long discussion with the patient about use of opioids for chronic pain issues. The patient needs to undergo total knee arthroplasty on the right and have a revision of her total knee arthroplasty on the left, but Orthopedic Surgery says that they would not be willing to provide her this procedure until she loses at least 50 pounds. I agree weight loss in this patient's case will significantly improve her osteoarthritis as also significantly improve her axial back pain and will improve her overall function. We have offered the patient options for weight loss including diet programs, exercise programs both aqua based and land based. We have even discussed the possibility of referral to Bariatric Surgery. The patient states she wishes to try diet and exercise as weight loss. I did advise the patient to look up her basic metabolic rate. There is a calculator on the [facility] [address] [place] [address] PAIN MANAGEMENT CONSULTATION Name: MADDY HERNANDES Room #: [facility]#: [id number] Admission: 02/22/18 Attend Phys: Ed Angeles DO Discharge: Date of : 48 Report #: [id number] Internet that can provide the patient with an averaging of the amount of caloric intake she would have to take currently to maintain her weight. I have advised the patient to take that calculation reduced by 200 calories and this should begin a slow and progressive weight loss that should be notable over a couple of months period of time. The patient and I discussed opioid medications. She is taking the equivalents of about 60 morphine equivalents a day, that is a high dose of opioid medication. We have advised the patient that recent CDC guidelines indicate no more than 90 morphine equivalents should be provided. She is below this number, but remains in a moderately risky level of opioid medications. We did note that she has had no aberrant injuries on her [place]-TRACS or [place]-TRACS system and appears to be utilizing and filling her medications appropriately. She has requested refill on medication for the next 3 months. 2. We have provided the patient with oxycodone 10 mg dose 1 tab p.o. q.i.d., I have provided only 100 tablets. This is to take as needed. She is not to use more than 100 tablets per month. She was given releases of today, 4 weeks from today and 8 weeks from today, 3 months' worth of medication. We reviewed the fact that opiate medications are being used to provide analgesia adequate to support activities of daily living, not attempting to achieve a specific pain score on the 0-10 Visual Analog Scale. The current opiate medications are providing sufficient analgesia to allow the patient to participate in activities of daily living. The patient is not exhibiting any aberrant behavior suggestive of drug diversion. The patient is not having any adverse reactions to medications. The patient is not suffering from daytime somnolence or mental acuity changes. The patient is managing opiate-induced constipation with appropriate kjni-zpb-okkatsi agents and dietary considerations. The patient was counseled on concern for caution with operating a motor vehicle while using opiate medications. A physical exam was performed and the patient's functional status was evaluated. All patients with back pain were advised against the bed rest greater than 4 days and were advised to return to normal activities. Pain score assessment was noted and the treatment plan was reviewed with the patient. All current medications, both prescribed and OTC were reviewed and reconciled on the electronic medical record. Tobacco screening was accomplished and smoking cessation was advised when indicated. BMI was noted and diet/exercise modification was recommended for all patients following outside normal parameters. I reviewed with the patient today their responsibilities to safeguard prescription medications, reviewed their responsibility to utilize medications only as prescribed by the physician. They are to seek and receive pain medications only from 1 physician group ( [facility]). They are to use 1 pharmacy and keep the clinic informed if they change pharmacies. Their responsibilities include making followup visits in a timely fashion and to avoid abrupt discontinuation of medication usage. Their responsibilities further [facility] [address] [place] [address] PAIN MANAGEMENT CONSULTATION Name: MADDY HERNANDES Room #: POLLO Randall#: [id number] Admission: 02/22/18 Attend Phys: Ed Angeles DO Discharge: Date of : 48 Report #: [id number] include bringing their medications (bottles from the pharmacy with residual pills) to the visit for possible confirmation of pill counts and the patient understands it is their responsibility to submit to random drug screens to ensure both that the medications prescribed are present, and that no other controlled substances are present. All prescriptions provided today were generated electronically. The patient will return to our clinic in 3 months. At that point, we will discuss further weight loss program and concerted effort at exercise. <ELECTRONICALLY SIGNED> By: Ed Angeles DO 02/23/18 0838 [id number] 0044 Ed Angeles DO /nt
[2018-02-22 10:25] VITALS: BP 144/80
== END ==
LOC: PAIN 07:04
DX: M47.816 Spondylosis without myelopathy or radiculopathy, lumbar region (principal); M17.11 Unilateral primary osteoarthritis, right knee; E66.01 Morbid (severe) obesity due to excess calories; G89.4 Chronic pain syndrome; F11.20 Opioid dependence, uncomplicated

== ENCOUNTER → 2018-06-07 | Outpatient (CLI) | payer OTHER ==
[~2018-06-07] VITALS: Ht 154.9 cm; Wt 114.8 kg
[~2018-06-07] MED LIST changes: +CALCIUM 500 +1 EACH PO; +VITAMIN D2000 UNIT PO; +VOLTAREN GEL 1100 G2 TOP
--- NOTE | ~2018-06-07 | HPC ---
[facility] [address] [place] [address] PAIN MANAGEMENT CONSULTATION Name: MADDY HERNANDES [facility] #: [facility] [id number] Admission: 06/07/18 Attend Phys: Eugenie Cano Discharge: Date of : 48 Report #: [id number] THIS REPORT FOR: //name// CC: Eugenie Cano Gerardo Solorio DATE OF SERVICE: 06/07/2018 CHIEF COMPLAINT: Bilateral knee pain, chronic axial back pain. HISTORY OF PRESENT ILLNESS: As you know, this is a 67-year-old female who suffers from bilateral chronic knee pain and chronic low back pain. She tells me that her pain score is 7/10 today, which is slightly higher than her normal average, but she does use her medications, thinks they are helpful and her spinal cord stimulator, which she uses all the time. She does also complain of slight right ankle pain today. She tells me her pain characteristics are an achy pain in these pain generators, worse with walking and standing. She denies constipation that is not relieved with some blye-ypz-uprieku medication and she does not have any daytime sleepiness. She does report that she was recently diagnosed with osteoporosis and started taking vitamin D and calcium [id number]. No prescription medicines are needed at this time for her osteoporosis. She would like a refill of her medications today. ALLERGIES: AMITRIPTYLINE, VESICARE AND TOVIAZ. CURRENT LIST OF MEDICATIONS: Vitamin D3, calcium plus D tablet, oxycodone 10/325 up to 4 times a day, diclofenac gel 3 times a day, Protonix daily, terbinafine 250 mg daily, oxybutynin 15 mg daily, meloxicam 7.5 mg daily, Ventolin inhaler as needed, guaifenesin as needed, Singulair 10 mg at bedtime, Coenzyme daily, Celexa 40 mg daily, carvedilol 6.25 twice a day, Lipitor 20 mg daily, melatonin 3 mg at night, and torsemide 40 mg daily. PQRS: 1. History of osteoarthritis in her right knee, lower back, bilateral ankles. She is not treated for rheumatoid arthritis. 2. She places her pain score today at 7/10. 3. Her height is 5 feet 1 inch, weight is 253, BMI is 49.4. 4. Vital signs: 139/81, pulse is 92, respirations 16, oxygen sat is 98%. 5. The patient does not have any dizziness, but does use a walker and has not fallen in the last 3 months. 6. She denies any blood thinners and she is being treated for hypertension. 7. She has been on opiate therapy greater than 6 weeks, therefore an opioid signed contract is on the chart. Her risk assessment tool is low and her functional assessment is 57/70. She denies recreational drug use. Does not smoke and does not drink alcohol. [address] [address] PAIN MANAGEMENT CONSULTATION Name: MADDY HERNANDES Room #: REG VIOLA Randall#: [id number] Admission: 06/07/18 Attend Phys: Eugenie Cano Discharge: Date of : 48 Report #: [id number] [place] The patient found to be compliant with her prescription fills from only one doctor and one pharmacy. The patient tells me she does safeguard her medications. PHYSICAL EXAMINATION: GENERAL: This is a well-developed, well-nourished, well-hydrated, morbidly obese 67-year-old female. She appears her stated age. Placing her pain score today around 7/10. HEENT: Normocephalic, atraumatic. Pupils equal, round, reactive to light. Extraocular muscles are intact. Speech is fluent. EXTREMITIES: No clubbing. No cyanosis present. MUSCULOSKELETAL: Lower extremity strength appears to be equal and symmetrical. Does use a walker. Pain is elicited with standing from a seated position. Straight leg raise is negative. ASSESSMENT: 1. Chronic axial back pain. 2. Osteoarthritis of the right knee. 3. Chronic left knee pain. 4. Osteoarthritis of the lower lumbar spine. 5. Morbid obesity. 6. Opioid dependency. 7. Chronic intractable pain. 8. Osteoporosis. PLAN: 1. The patient returns today for followup of her opioid medications for her chronic pain issues. She has not had her knee replaced yet, still working on trying to lose some weight. Her weight is 10 pounds less than her last visit, which was 3 months ago. The patient continues to try and lose weight before she is able to have her knee replaced per the orthopedic surgeon's request. 2. The patient given prescriptions of Percocet 10/325 q.i.d., quantity is 100 for today, 4-week and 8-week release. This falls below the CDC guidelines of 90 MME or less so therefore 3 months of medications are appropriate for this patient as we continue to monitor her. She will need a drug screen done on her next visit as that would have been longer than one year since the last screen was performed. 3. Diclofenac gel 1%, 2 tubes with 4 additional refills were given also to the patient today. 4. We reviewed the fact that opiate medications are being used to provide analgesia adequate to support activities of daily living, not attempting to achieve a specific pain score on the 0-10 Visual Analog Scale. The current opiate medications are providing sufficient analgesia to allow the patient to participate in activities of daily living. The patient is not exhibiting any aberrant behavior suggestive of drug diversion. The patient is not having any adverse reactions to medications. The patient is not suffering from daytime [facility] [address] [place] [address] PAIN MANAGEMENT CONSULTATION Name: MADDY HERNANDES Room #: [facility] [id number] Admission: 06/07/18 Attend Phys: Eugenie Cano Discharge: Date of : 48 Report #: [id number] somnolence or mental acuity changes. The patient is managing opiate-induced constipation with appropriate oyuf-odu-zdvraow agents and dietary considerations. The patient was counseled on concern for caution with operating a motor vehicle while using opiate medications. A physical exam was performed and the patient's functional status was evaluated. All patients with back pain were advised against the bed rest greater than 4 days and were advised to return to normal activities. Pain score assessment was noted and the treatment plan was reviewed with the patient. All current medications, both prescribed and OTC were reviewed and reconciled on the electronic medical record. Tobacco screening was accomplished and smoking cessation was advised when indicated. BMI was noted and diet/exercise modification was recommended for all patients following outside normal parameters. I reviewed with the patient today their responsibilities to safeguard prescription medications, reviewed their responsibility to utilize medications only as prescribed by the physician. They are to seek and receive pain medications only from 1 physician group ( [facility]). They are to use 1 pharmacy and keep the clinic informed if they change pharmacies. Their responsibilities include making followup visits in a timely fashion and to avoid abrupt discontinuation of medication usage. Their responsibilities further include bringing their medications (bottles from the pharmacy with residual pills) to the visit for possible confirmation of pill counts and the patient understands it is their responsibility to submit to random drug screens to ensure both that the medications prescribed are present, and that no other controlled substances are present. All prescriptions provided today were generated electronically. 5. The patient will be seen in 3 months for medication refills or sooner if she needs an injection done by Dr. Ed Angeles. The patient seen in collaboration with Dr. Ed Angeles today. <ELECTRONICALLY SIGNED> By: Eugenie Cano 06/08/18 0714 1135 1239 Eugenie Cano /nt
[2018-06-07 11:03] VITALS: BP 139/81
== END ==
LOC: PAIN 08:18
DX: M47.816 Spondylosis without myelopathy or radiculopathy, lumbar region (principal); M17.11 Unilateral primary osteoarthritis, right knee; M81.0 Age-related osteoporosis without current pathological fracture; M25.562 Pain in left knee; G89.4 Chronic pain syndrome; E66.01 Morbid (severe) obesity due to excess calories; F11.20 Opioid dependence, uncomplicated; Z79.899 Other long term (current) drug therapy

== ENCOUNTER → 2018-09-14 | Outpatient (CLI) | payer OTHER ==
[~2018-09-14] VITALS: Ht 154.9 cm; Wt 114.8 kg
[2018-09-14 09:31] VITALS: BP 132/62
--- NOTE | 2018-09-14 09:33 | NUR ---
Pain Clinic Assessment: 1. History of Osteoarthritis: Right Lower Extremity History of Rheumatoid Arthritis: Not Applicable 2. Height: 5 ft. 1 in. 154.9 cm. Weight: 253.0 lb. oz. 114.760 kg. Patient's BMI: 47.8 3. Vital Signs: BP: 132/62 Pulse: 100 Resp: 16 Temp: 02 Sat: 96 ECG Mon: 4. Pain Intensity: 8 5. Fall Risk: Dizziness: N Needs help standing or walking: N Fallen in the last 3 months: Y Fall risk comments: 6. Patient on Blood Thinner: None 7. History of Hypertension: N 8. Opioid Therapy greater than 6 weeks: Y Opiate Contract Signed: 01/30/16 9. Risk Assessment Tool Provided: 07/14 LOW RISK 10. Functional Assessment Tool: 11. Recreational Drug Use: Never Drug Type: Tobacco Use: Never Smoker Tobacco Type: Amount or Packs/day: How Many Years: Alcohol Use: No Frequency: Quant:
--- NOTE | 2018-09-20 07:52 | HPC ---
[facility] [address] [place] [address] PAIN MANAGEMENT CONSULTATION Name: MADDY HERNANDES Room #: REG [facility]..#: [id number] Admission: 09/14/18 ������������������ Attend Phys: Ed Angeles DO Discharge: ������������������ Date of : 48 Report #: [id number] THIS REPORT FOR: //name// CC: Ed Solorio DO DATE OF SERVICE: 09/14/2018 REFERRING PHYSICIAN: Gerardo Solorio DO CHIEF COMPLAINT: Bilateral knee pain, chronic axial back pain. HISTORY OF PRESENT ILLNESS: As you know, the patient is a severely morbidly obese 68-year-old female who suffers from chronic bilateral knee pain, chronic low back pain. She has a spinal cord stimulator in place for axial back pain, which does not provide any improvement. The patient has been advised by her orthopedic surgeon that she is a candidate to undergo total knee arthroplasty, but has to lose at least 50-75 pounds before they would even consider this option. The patient has been unable to do so. She indicates pain today is chronic and aching in nature, 8/10 is the level she is currently at. She states walking, standing and weather changes exacerbate symptoms. Medications, spinal cord stimulator and sedentary lifestyle tends to improve pain. She has returned today in followup visit requesting refill of medications for which she takes Percocet no more than 4 in a day. She states without the medication, she would not be able to be as active as she has. She returns requesting refill on medications. She has not begun any type of exercise or weight loss program to begin to address the request of her orthopedic surgeon in regards to surgical options. ALLERGIES: AMITRIPTYLINE, VESICARE, TOVIAZ. CURRENT MEDICATIONS: Percocet, diclofenac gel, pantoprazole, Terbinafine, oxybutynin ER, meloxicam, albuterol, Mucinex, montelukast sodium, torsemide, melatonin, atorvastatin, carvedilol, citalopram, coenzyme Q. SOCIAL HISTORY: The patient denies tobacco, alcohol, IV or illicit drug use. She retired in 2001, unaccompanied today. IMAGING: No new imaging available. PQRS: The patient has osteoarthritic changes of the low back, bilateral ankles and right knee. She does not have a diagnosis of rheumatoid arthritis. Pain intensity is 8/10. She is not typically a fall risk, but has had a fall in the last 3 months. She does not use any type of ambulatory devices on a consistent basis. She is not on blood thinners. She is not treated for hypertension. She [address] [address] PAIN MANAGEMENT CONSULTATION Name: MADDY HERNANDES Room #: REG Petros Mckenzie.Estela.#: [id number] Admission: 09/14/18 ������������������ Attend Phys: Ed Angeles DO Discharge: ������������������ Date of : 48 Report #: [id number] is on opioids and has been on extended opioid treatment. She is a low risk of opioid addiction. She is placing pain impact score at 57/70, severe interference of daily activities secondary to pain. PHYSICAL EXAMINATION: VITAL SIGNS: Blood pressure 132/62, pulse 100, respiratory rate 16 and unlabored. The patient is 96% on room air. Height 5 feet 1 inch tall, weight 253 pounds, BMI calculated at 47.8. GENERAL: Well-developed, well-nourished, well-hydrated severely morbidly obese 68-year-old female, appearing stated age, pain is rated at 8/10. HEENT: Normocephalic, atraumatic. Pupils equal, round, reactive to light. EXTREMITIES: Show no clubbing, no cyanosis and no edema. MUSCULOSKELETAL: Lower extremity strength symmetrical with give-way strength noted with active and passive range of motion on the right knee when compared to left. Pain is elicited with standing from seated position. Ambulation is quite antalgic favoring right lower extremity over left. ASSESSMENT: 1. Chronic axial back pain. 2. Osteoarthritis of the right knee. 3. Chronic left knee pain. 4. Osteoarthritis of the lumbar spine. 5. Severe morbid obesity. 6. Opioid dependency. 7. Chronic intractable pain. PLAN: 1. The patient returns today in followup visit. We had a very long discussion about her weight and how this affects her ongoing issues. She has been advised by her orthopedic surgeon that surgery would not be possible unless she loses some of her excessive weight. Her BMI today is 47.8 well above recommended BMI for an individual her height and age. She needs to make a concerted effort to begin losing weight. This will not only improve her bilateral knee pain, right greater than left, but also assist in her axial back pain issues that are being compounded by this excessive weight. We had a very long discussion with the patient about that today. Also, indicating that opioid medications will likely be discontinued in the very near future for chronic pain patients. There has been no longitudinal data indicating that opioid medication should be used for a long period of time for treatment nor has there been shown any increase in efficacy in patients return to work or ability to sustain activities with the use of long-term opioids. We have discussed this again today. There is a strong likelihood that opioids will once again be weaned further with plans to ultimately come off opioids in the very near future as I do not feel they will be available nor has they been noted to be very effective in this patient's case. The patient reports today a pain score of 8/10. When she initially was seen in our clinic in 2012, her pain was 8/10. We called the patient's [facility] [address] [place] [address] PAIN MANAGEMENT CONSULTATION Name: MADDY HERNANDES Room #: REG VIOLA Pimentel.#: [id number] Admission: 09/14/18 ������������������ Attend Phys: Ed Angeles DO Discharge: ������������������ Date of : 48 Report #: [id number] attention to this today indicating there is a strong likelihood that we will ultimately have to wean off of opioids given their lack of noted efficacy. The patient would submit to urine drug screen as part of our monitoring program for chronic opioid medication management patients. We will review the findings once they are available. She can contact our clinic next week in regards to those findings. 2. The patient will be continued on the oxycodone 10/325 one tablet p.o. q. 6 hours p.r.n. for pain, I have given the patient #100, which gives her no more than 3-1/2 tablets per day. She is to fill the prescriptions appropriately. She is not to fill early refills. She is given prescriptions to release today, 4 weeks from today, 8 weeks from today, 3 months' worth of medication. We reviewed the fact that opiate medications are being used to provide analgesia adequate to support activities of daily living, not attempting to achieve a specific pain score on the 0-10 Visual Analog Scale. The current opiate medications are providing sufficient analgesia to allow the patient to participate in activities of daily living. The patient is not exhibiting any aberrant behavior suggestive of drug diversion. The patient is not having any adverse reactions to medications. The patient is not suffering from daytime somnolence or mental acuity changes. The patient is managing opiate-induced constipation with appropriate vpzd-kta-[id number] agents and dietary considerations. The patient was counseled on concern for caution with operating a motor vehicle while using opiate medications. A physical exam was performed and the patient's functional status was evaluated. All patients with back pain were advised against the bed rest greater than 4 days and were advised to return to normal activities. Pain score assessment was noted and the treatment plan was reviewed with the patient. All current medications, both prescribed and OTC were reviewed and reconciled on the electronic medical record. Tobacco screening was accomplished and smoking cessation was advised when indicated. BMI was noted and diet/exercise modification was recommended for all patients following outside normal parameters. I reviewed with the patient today their responsibilities to safeguard prescription medications, reviewed their responsibility to utilize medications only as prescribed by the physician. They are to seek and receive pain medications only from 1 physician group ( [facility]). They are to use 1 pharmacy and keep the clinic informed if they change pharmacies. Their responsibilities include making followup visits in a timely fashion and to avoid abrupt discontinuation of medication usage. Their responsibilities further include bringing their medications (bottles from the pharmacy with residual pills) to the visit for possible confirmation of pill counts and the patient understands it is their responsibility to submit to random drug screens to ensure both that the medications prescribed are present, and that no other [address] [address] PAIN MANAGEMENT CONSULTATION Name: MADDY HERNANDES Room #: REG VIOLA Randall#: [id number] Admission: 09/14/18 ������������������ Attend Phys: Ed Angeles DO Discharge: ������������������ Date of : 48 Report #: [id number] controlled substances are present. All prescriptions provided today were generated electronically. ��������������������������������������������� <ELECTRONICALLY SIGNED> ���������������������������������������� By: Ed Angeles DO ��������������������������������������������� 09/20/18 0752 [id number] Ed Angeles DO /
== END ==
LOC: PAIN 06:53
DX: M17.11 Unilateral primary osteoarthritis, right knee (principal); M47.816 Spondylosis without myelopathy or radiculopathy, lumbar region; E66.8 Other obesity; G89.29 Other chronic pain; Z79.891 Long term (current) use of opiate analgesic; Z88.8 Allergy status to other drugs, medicaments and biological substances; Z79.899 Other long term (current) drug therapy

== ENCOUNTER → 2018-12-20 | Outpatient (CLI) | payer OTHER ==
[~2018-12-20] VITALS: Ht 154.9 cm; Wt 110.7 kg
[~2018-12-20] MED LIST changes: +CALCIUM500 MG PO; +WELLBUTRIN SR150 MG PO
[2018-12-20 10:12] VITALS: BP 128/66
--- NOTE | 2018-12-20 10:22 | NUR ---
Pain Clinic Assessment: 1. History of Osteoarthritis: B/L ANKLE B/L KNEES B/L HANDS History of Rheumatoid Arthritis: Not Applicable 2. Height: 5 ft. 1 in. 154.9 cm. Weight: 244.0 lb. oz. 110.678 kg. Patient's BMI: 46.1 3. Vital Signs: BP: 128/66 Pulse: 95 Resp: 16 Temp: 02 Sat: 99 ECG Mon: 4. Pain Intensity: 4 5. Fall Risk: Dizziness: N Needs help standing or walking: N Fallen in the last 3 months: N Fall risk comments: 6. Patient on Blood Thinner: None 7. History of Hypertension: N 8. Opioid Therapy greater than 6 weeks: Y Opiate Contract Signed: 01/30/16 9. Risk Assessment Tool Provided: 07/14 LOW RISK 10. Functional Assessment Tool: 11. Recreational Drug Use: Never Drug Type: Tobacco Use: Never Smoker Tobacco Type: Amount or Packs/day: How Many Years: Alcohol Use: No Frequency: Quant:
--- NOTE | 2018-12-21 08:19 | HPC ---
[facility] [address] [address] PAIN MANAGEMENT CONSULTATION Name: MADDY HERNANDES Room #: REG [facility] MEnrrique.#: [id number] Admission: 12/20/18 ������������������ Attend Phys: Eugenie Cano Discharge: ������������������ Date of : 48 Report #: [id number] THIS REPORT FOR: //name// CC: Eugenie Cano Gerardo Solorio DATE OF SERVICE: 12/20/2018 CHIEF COMPLAINT: Bilateral knee pain, chronic axial back pain. HISTORY OF PRESENT ILLNESS: This is a very pleasant 68-year-old, severely morbidly obese female, who returns to the pain clinic today for chronic bilateral knee pain and chronic low back pain. She tells me that her knee pain continues to be the most problematic, rating her pain score of 4/10 today. She tells me that it is worse with standing and weather changes, though her medication is helpful. She does use her spinal cord stimulator at all times and this does help her low back pain. She tells me that she needs to lose about 50 more pounds in order to get her right knee replacement. Her left knee does need to be redone as well, but her right knee is the worst knee currently. She tells me she is not having any problems with constipation from her medications and does not feel overmedicated. She would like a refill of her medications today. ALLERGIES: ELAVIL, VESICARE, TOVIAZ. CURRENT LIST OF MEDICATIONS: Bupropion 150 mg daily, calcium daily, oxycodone 10/325 two to three times a day, aspirin 81 mg daily, Voltaren gel as needed, vitamin D, Protonix 40 mg daily, oxybutynin 15 mg daily, meloxicam 7.5 mg daily, Singulair 10 mg at bedtime, CoQ10 200 mg daily, Celexa 40 mg daily, Coreg 6.25 mg b.i.d., atorvastatin 20 mg daily, melatonin 3 mg at bedtime and furosemide 40 mg daily. PQRS: The patient has arthritic changes in her lower back, bilateral ankles and bilateral knees. She does not have a diagnosis of rheumatoid arthritis. Height is 5 feet 1 inch, weight is 244, and BMI is 46. This is a decrease from her previous visit of 10 pounds. Vital signs: 126/66, pulse 95, respirations 16, oxygen sat is 99. Pain score is 4/10. Fall risk: Denies dizziness, does use a walker and has not fallen in the last 3 months. The patient is not on any blood thinners, does take medicines for hypertension. Opioid therapy is greater than 6 weeks, therefore an opioid signed contract is on the chart. Her risk assessment tool is low. Functional assessment is 57/70. Recreational drug use: She denies. She is not a smoker and does not drink alcohol. We did check the prescription monitoring system. The patient is filling appropriately for her medication and is due for those today. There is a drug screen on the chart as well, that is appropriate for her medications. [address] [address] PAIN MANAGEMENT CONSULTATION Name: MADDY HERNANDES Room #: POLLO Randall#: [id number] Admission: 12/20/18 ������������������ Attend Phys: Eugenie Cano Discharge: ������������������ Date of : 48 Report #: [id number] PHYSICAL EXAMINATION: GENERAL: This is a well-developed, well-nourished, well-hydrated severely morbidly obese 68-year-old female who is alert and orientated. Her pain today is 4/10. HEENT: Normocephalic, atraumatic. Pupils equal, round and reactive to light. Mucous membranes moist. EXTREMITIES: No clubbing, no cyanosis, no edema. MUSCULOSKELETAL: Lower extremity strength is symmetrical. She does have active and passive range of motion of her right knee that has decreased strength in it compared to the left. Pain is elicited with standing from seated position. She does ambulate with an antalgic gait, uses a walker at all times. Ambulation she favors her right over her left lower extremity. ASSESSMENT: 1. Chronic axial back pain. 2. Osteoarthritis of the right knee. 3. Chronic left knee pain. 4. Osteoarthritis of the lumbar spine. 5. Severe morbid obesity. 6. Opioid dependency. 7. Chronic intractable pain. We reviewed the fact that opiate medications are being used to provide analgesia adequate to support activities of daily living, not attempting to achieve a specific pain score on the 0-10 Visual Analog Scale. The current opiate medications are providing sufficient analgesia to allow the patient to participate in activities of daily living. The patient is not exhibiting any aberrant behavior suggestive of drug diversion. The patient is not having any adverse reactions to medications. The patient is not suffering from daytime somnolence or mental acuity changes. The patient is managing opiate-induced constipation with appropriate wgzq-nog-npkibdu agents and dietary considerations. The patient was counseled on concern for caution with operating a motor vehicle while using opiate medications. A physical exam was performed and the patient's functional status was evaluated. All patients with back pain were advised against the bed rest greater than 4 days and were advised to return to normal activities. Pain score assessment was noted and the treatment plan was reviewed with the patient. All current medications, both prescribed and OTC were reviewed and reconciled on the electronic medical record. Tobacco screening was accomplished and smoking cessation was advised when indicated. BMI was noted and diet/exercise modification was recommended for all patients following outside normal parameters. I reviewed with the patient today their responsibilities to safeguard prescription medications, reviewed their responsibility to utilize medications [facility] [address] [place] [address] PAIN MANAGEMENT CONSULTATION Name: MADDY HERNANDES Room #: REG [facility] M..#: [id number] Admission: 12/20/18 ������������������ Attend Phys: Eugenie Cano Discharge: ������������������ Date of : 48 Report #: [id number] only as prescribed by the physician. They are to seek and receive pain medications only from 1 physician group ( [facility]). They are to use 1 pharmacy and keep the clinic informed if they change pharmacies. Their responsibilities include making followup visits in a timely fashion and to avoid abrupt discontinuation of medication usage. Their responsibilities further include bringing their medications (bottles from the pharmacy with residual pills) to the visit for possible confirmation of pill counts and the patient understands it is their responsibility to submit to random drug screens to ensure both that the medications prescribed are present, and that no other controlled substances are present. All prescriptions provided today were generated electronically. PLAN: 1. We discussed treatment options with the patient today. The patient would like to have her knees replaced, but she tells me that she still needs to lose about 50 pounds. She has decreased her weight from 253 to 244 since September, she tells me still 50 pounds to go, we discussed exercise, especially water aerobics, this does not put the stress on her knees that it is with general walking due to the buoyancy of the water. The patient tells me where she does therapy, there is a water therapy pool, and she would like to start going there. Scripts written for physical therapy for water aerobics, for them to teach her some exercises and then she can do them on her own in the pool. This would enable her to hopefully be a little more active and lose some weight. 2. We also talked about diet control, trying to lose additional weight to enable her to have her knee replaced. The Whole30 diet was discussed as well as Keto diet. We talked about that this would be a family effort because it is a total change in how she eats. Her is present and he is willing to do these diets in order for her to get her pain controlled with her knee replacement. 3. Scripts given today for Percocet 10/325, #100 for today, 4-week and 8-week release as well as Voltaren gel, which she finds very beneficial in helping some of her knee discomfort. 4. Dr. Ed Angeles did see the patient in [facility] today. The patient will return in followup in 3 months. ��������������������������������������������� <ELECTRONICALLY SIGNED> ���������������������������������������� By: Eugenie Cano ��������������������������������������������� 12/21/18 0819 [id number] Eugenie Cano /wiley
== END ==
LOC: PAIN 06:39
DX: M17.12 Unilateral primary osteoarthritis, left knee (principal); M47.896 Other spondylosis, lumbar region; F11.20 Opioid dependence, uncomplicated; G89.29 Other chronic pain

== ENCOUNTER → 2019-03-21 | Outpatient (CLI) | payer OTHER ==
[~2019-03-21] VITALS: Ht 154.9 cm; Wt 109.8 kg
[2019-03-21 09:05] VITALS: BP 141/63
--- NOTE | 2019-03-21 09:30 | NUR ---
Pain Clinic Assessment: 1. History of Osteoarthritis: B/L ANKLE B/L KNEES B/L HANDS History of Rheumatoid Arthritis: Not Applicable 2. Height: 5 ft. 1 in. 154.9 cm. Weight: 242.0 lb. oz. 109.771 kg. Patient's BMI: 45.7 3. Vital Signs: BP: 141/63 Pulse: 70 Resp: 20 Temp: 02 Sat: 96 ECG Mon: 4. Pain Intensity: 7-8 5. Fall Risk: Dizziness: N Needs help standing or walking: Y Fallen in the last 3 months: N Fall risk comments: 6. Patient on Blood Thinner: None 7. History of Hypertension: N 8. Opioid Therapy greater than 6 weeks: Y Opiate Contract Signed: 01/30/16 9. Risk Assessment Tool Provided: 07/14 LOW RISK 10. Functional Assessment Tool: 11. Recreational Drug Use: Never Drug Type: Tobacco Use: Never Smoker Tobacco Type: Amount or Packs/day: How Many Years: Alcohol Use: No Frequency: Quant:
--- NOTE | 2019-03-23 13:09 | HPC ---
[facility] [place] [address] PAIN MANAGEMENT CONSULTATION Name: MADDY HERNANDES Room #: REG [facility] Prakash#: [id number] Admission: 03/21/19 ������������������ Attend Phys: Eugenie Cano Discharge: ������������������ Date of : 48 Report #: [id number] THIS REPORT FOR: //name// CC: Eugenie Cano Gerardo Solorio DATE OF SERVICE: 03/21/2019 CHIEF COMPLAINT: Bilateral knee pain, chronic axial back pain, and right ankle pain. HISTORY OF PRESENT ILLNESS: This is a 68-year-old female who returns to the pain clinic today for refill of her medications that she uses to help treat her chronic bilateral knee pain. She does have ongoing low back pain as well and uses a spinal cord stimulator to help relieve that discomfort. Today, she reports a pain score of 7-8. There is an achy pain, worse with standing and weather changes, but her medications and her spinal cord stimulator are very beneficial. She tells me that she uses probiotic to help with ongoing constipation issues that she suffers from her oxycodone. She denies any daytime sleepiness. When questioned the patient about her physical therapy orders, she tells me that she does go to [facility] in [facility] couple times a week. We did order this in December and we have not received any information from this Physical Therapy Department on her progress. The patient tells me she does do the exercises at home, though not as often as she probably should. ALLERGIES: AMITRIPTYLINE, VESICARE and TOVIAZ. CURRENT LIST OF MEDICATIONS: Diclofenac gel, oxycodone 10/325, bupropion 150, calcium, aspirin, vitamin D, Protonix, oxybutynin 15 mg, meloxicam 7.5 mg daily, Mucinex, Singulair, Coenzyme, Celexa 20 mg, Coreg 6.25 mg b.i.d., Lipitor 20 mg, melatonin and torsemide 40 mg daily. PQRS: 1. She has arthritic changes in her lumbar spine, bilateral knees and ankles. She is not being treated for rheumatoid arthritis. 2. Height is 5 feet 1 inch, weight is 242, BMI is 45. 3. Vital signs 141/63, pulse is 70, respirations 20, oxygen sat is 96. 4. Pain score is 7-8. 5. Denies dizziness. Does use a walker for assistance with walking and has not fallen in the last 3 months. 6. The patient is not on any blood thinners and does not take medicine for hypertension. 7. Opiate therapy is greater than 6 weeks; therefore, an opioid signed contract is on the chart. Her risk assessment tool is low[place] [address] PAIN MANAGEMENT CONSULTATION Name: GRETAMADDY TRACY Room #: REG VIOLA Randall#: [id number] Admission: 03/21/19 ������������������ Attend Phys: Eugenie Cano Discharge: ������������������ Date of : 48 Report #: [id number] 57/70. 8. Recreational drug use, she denies. She is not a smoker and does not drink alcohol. According to the prescription monitoring system, the patient is filling appropriately for her medications. There is a drug screen on the chart and that is appropriate for her medications. PHYSICAL EXAMINATION: GENERAL: This is a morbidly obese 68-year-old female who is alert and orientated and appears her stated age, placing her current pain score at 7-8 today. HEENT: Normocephalic, atraumatic. Extraocular eye muscles are intact. Mucous membranes are moist. EXTREMITIES: No clubbing, no cyanosis, no edema. She ambulates with an antalgic gait using a walker at all times. MUSCULOSKELETAL: Her lower extremity strength is symmetrical. She does have active and passive range of motion in her bilateral knees. Her pain is elicited in her knees with standing from a seated position. She does favor her right over her left lower extremity, also complains of tenderness on her lumbar paraspinal musculature. IMPRESSION: 1. Chronic axial back pain. 2. Osteoarthritis of the right knee. 3. Chronic left knee pain. 4. Osteoarthritis of the lumbar spine. 5. Severe morbid obesity. 6. Chronic intractable pain. 7. Opioid dependency under written opioid agreement. We reviewed the fact that opiate medications are being used to provide analgesia adequate to support activities of daily living, not attempting to achieve a specific pain score on the 0-10 Visual Analog Scale. The current opiate medications are providing sufficient analgesia to allow the patient to participate in activities of daily living. The patient is not exhibiting any aberrant behavior suggestive of drug diversion. The patient is not having any adverse reactions to medications. The patient is not suffering from daytime somnolence or mental acuity changes. The patient is managing opiate-induced constipation with appropriate tsfx-qva-khsreog agents and dietary considerations. The patient was counseled on concern for caution with operating a motor vehicle while using opiate medications. A physical exam was performed and the patient's functional status was evaluated. All patients with back pain were advised against the bed rest greater than 4 days and were advised to return to normal activities. Pain score assessment was [address] [address] PAIN MANAGEMENT CONSULTATION Name: MADDY HERNANDES Room #: REG CL[facility] Randall#: [id number] Admission: 03/21/19 ������������������ Attend Phys: Eugenie Cano Discharge: ������������������ Date of : 48 Report #: [id number] noted and the treatment plan was reviewed with the patient. All current medications, both prescribed and OTC were reviewed and reconciled on the electronic medical record. Tobacco screening was accomplished and smoking cessation was advised when indicated. BMI was noted and diet/exercise modification was recommended for all patients following outside normal parameters. I reviewed with the patient today their responsibilities to safeguard prescription medications, reviewed their responsibility to utilize medications only as prescribed by the physician. They are to seek and receive pain medications only from 1 physician group ( [facility]). They are to use 1 pharmacy and keep the clinic informed if they change pharmacies. Their responsibilities include making followup visits in a timely fashion and to avoid abrupt discontinuation of medication usage. Their responsibilities further include bringing their medications (bottles from the pharmacy with residual pills) to the visit for possible confirmation of pill counts and the patient understands it is their responsibility to submit to random drug screens to ensure both that the medications prescribed are present, and that no other controlled substances are present. All prescriptions provided today were generated electronically. PLAN: 1. We discussed treatment options with the patient today. The patient reports that she does attend physical therapy from [facility] in [facility] though we have not received any written documentation from that therapist. I encouraged the patient to have them send something when she goes for her next therapy session. Verbalizes understanding. 2. We encouraged the patient to continue her weight loss. She has lost only 2 pounds since her last visit. She is trying to lose weight, so she can have her knee replaced. She was informed she had to lose 50 pounds before they will do surgery. She had recently lost significant amount at her last visit, but not at this time. I encouraged her to continue her water therapy as well as her walking exercises at home. 3. Percocet 10/, #100 given for today for an 8-week. This places the patient at 60 morphine mEq according to the CDC guidelines. 4. Voltaren gel also was renewed today. The patient finds this very beneficial on her knees and ankles. 5. The patient is seen in collaboration with Dr. Ed Angeles. She will return in 2 months for an appointment. ��������������������������������������������� <ELECTRONICALLY SIGNED> ���������������������������������������� By: Eugenie Cano ��������������������������������������������� 03/23/19 1309 [id number] [id number] Eugenie Cano /nt
== END ==
LOC: PAIN 06:43
DX: M17.11 Unilateral primary osteoarthritis, right knee (principal); M47.816 Spondylosis without myelopathy or radiculopathy, lumbar region; M54.5 Low back pain; E66.01 Morbid (severe) obesity due to excess calories; G89.29 Other chronic pain; G89.4 Chronic pain syndrome; F11.20 Opioid dependence, uncomplicated

== ENCOUNTER → 2019-06-21 | Outpatient (CLI) | payer OTHER ==
[~2019-06-21] VITALS: Ht 154.9 cm; Wt 110.5 kg
[~2019-06-21] MED LIST changes: +OMEPRAZOLE40 MG PO; +OXYBUTYNIN 5 MG5 M2 PO; +TURMERIC COMPL1 EACH PO; +VOLTAREN GEL 1100 GM TOP
[2019-06-21 09:31] VITALS: BP 141/77
--- NOTE | 2019-06-21 09:43 | NUR ---
Pain Clinic Assessment: 1. History of Osteoarthritis: B/L ANKLE B/L KNEES B/L HANDS History of Rheumatoid Arthritis: Not Applicable 2. Height: 5 ft. 1 in. 154.9 cm. Weight: 243.6 lb. oz. 110.496 kg. Patient's BMI: 46.1 3. Vital Signs: BP: 141/77 Pulse: 93 Resp: 20 Temp: 02 Sat: 97 ECG Mon: 4. Pain Intensity: 7-NOW/DAILY AVG 5. Fall Risk: Dizziness: N Needs help standing or walking: Y Fallen in the last 3 months: N Fall risk comments: 6. Patient on Blood Thinner: None 7. History of Hypertension: N 8. Opioid Therapy greater than 6 weeks: Y Opiate Contract Signed: 01/30/16 9. Risk Assessment Tool Provided: 07/14 LOW RISK 10. Functional Assessment Tool: 11. Recreational Drug Use: Never Drug Type: Tobacco Use: Never Smoker Tobacco Type: Amount or Packs/day: How Many Years: Alcohol Use: No Frequency: Quant:
--- NOTE | 2019-06-22 08:44 | HPC ---
[facility] [address] [place] [address] PAIN MANAGEMENT CONSULTATION Name: MADDY HERNANDES [id number] Admission: 06/21/19 Attend Phys: Eugenie Cano Discharge: Date of : 49 Report #: [id number] THIS REPORT FOR: //name// CC: Eugenie Knapp DO DATE OF SERVICE: 06/21/2019 CHIEF COMPLAINT: Bilateral knee pain, chronic axial back pain and right ankle pain. HISTORY OF PRESENT ILLNESS: This is a 68-year-old female who returns to the pain clinic today for refill of her medications that she uses to take for her chronic back pain and osteoarthritis. She is rating her pain today at 7/10, which is a constant, aching pain that is present in her bilateral knees and right ankle and lower back. She reports that she had fallen recently and hurt her left knee, which is her knee that she has had replaced and that has been giving her more problems lately than her right. Walking and weather changes do increase her pain. She feels that her medications are beneficial as well as her spinal cord stimulator, which she uses 24 hours a day. She continues to use her pain pills as well as her Voltaren gel with minimal constipation or daytime sleepiness as a result of these medications. ALLERGIES: AMITRIPTYLINE, VESICARE and TOVIAZ. CURRENT LIST OF MEDICATIONS: Omeprazole, turmeric, oxybutynin, Percocet 10/325 p.r.n., Voltaren gel, bupropion, calcium, aspirin, vitamin D, oxybutynin, meloxicam, Ventolin, Singulair, Coenzyme, Celexa, Coreg, Lipitor, melatonin and torsemide. PQRS: 1. She has arthritic changes in her lumbar spine, bilateral knees and ankles. She is not being treated for rheumatoid arthritis. 2. Height is 5 feet 1 inch, weight is 243, BMI is 46. 3. Vital signs; 141/77, pulse is 93, respirations 20, oxygen sat is 97. 4. Pain score is 7/10. 5. Denies dizziness. Does use a walker and has not fallen in the last 3 months. 6. The patient is not on any blood thinners or hypertension medicines. 7. She is on opioid therapy greater than 6 weeks; therefore, an opioid signed contract is on the chart. Risk assessment tool is low. Functional assessment 54/70. 8. Recreational drug use, she denies. She is not a smoker and [place] [address] PAIN MANAGEMENT CONSULTATION Name: MADDY HERNANDES Room #: REG [facility] Prakash#: [id number] Admission: 06/21/19 Attend Phys: Eugenie Cano Discharge: Date of : 48 Report #: [id number] According to the prescription monitoring system, the patient is filling appropriately for her medications in a timely fashion from Dr. Ed Angeles. She is due to fill those medications this week. There is a drug screen on the chart. We will recheck that at her that is appropriate as well. PHYSICAL EXAMINATION: GENERAL: This is a morbidly obese 68-year-old female who appears her stated age, placing her current pain score at 7/10. She is alert and orientated and a good historian. HEENT: Normocephalic, atraumatic. Extraocular eye muscles are intact. EXTREMITIES: No clubbing, no cyanosis, no edema. She walks with a walker at all times. MUSCULOSKELETAL: Lower extremity strength is symmetrical, but deconditioned at 4/5 bilaterally. Active and passive range of motion in her bilateral knees does elicit pain as well as standing from a seated position. She does favor her right over her left. She also complains of axial back pain, has a spinal cord stimulator present in her buttock. IMPRESSION: 1. Chronic axial back pain. 2. Osteoarthritis of the right knee. 3. Chronic left knee pain, has a total knee on the left knee. 4. Spinal stenosis of the lumbar spine. 5. Morbidly obesity. 6. Chronic intractable pain. 7. Opioid dependency under written opioid agreement. We reviewed the fact that opiate medications are being used to provide analgesia adequate to support activities of daily living, not attempting to achieve a specific pain score on the 0-10 Visual Analog Scale. The current opiate medications are providing sufficient analgesia to allow the patient to participate in activities of daily living. The patient is not exhibiting any aberrant behavior suggestive of drug diversion. The patient is not having any adverse reactions to medications. The patient is not suffering from daytime somnolence or mental acuity changes. The patient is managing opiate-induced constipation with appropriate efkd-rbc-mrmefmm agents and dietary considerations. The patient was counseled on concern for caution with operating a motor vehicle while using opiate medications. A physical exam was performed and the patient's functional status was evaluated. All patients with back pain were advised against the bed rest greater than 4 days and were advised to return to normal activities. Pain score assessment was noted and the treatment plan was reviewed with the patient. All current medications, both prescribed and OTC were reviewed and reconciled on the electronic medical record. Tobacco screening was accomplished and smoking [address] [address] PAIN MANAGEMENT CONSULTATION Name: MADDY HERNANDES Room #: REG [facility]#: [id number] Admission: 06/21/19 Attend Phys: Eugenie Cano Discharge: Date of : 48 Report #: [id number] cessation was advised when indicated. BMI was noted and diet/exercise modification was recommended for all patients following outside normal parameters. PLAN: 1. We discussed treatment options with the patient today. The patient's doctor has encouraged her to lose weight, though she has not lost any weight in the past 2 months since we have seen her. Before he will replace her right knee, I encouraged her to get a second opinion to see if another physician would be willing to do it without her weight loss. Dr. Maurice Benitez's name was given at [facility]. The patient verbalizes that she will call for a second opinion. Her right knee pain continues to cause her significant pain and is making it difficult for her to exercise to decrease her weight. I encouraged the patient to do diet modification as well since she is unable to be as active as she would like to lose additional weight. 2. We will refill her Roxicodone 10/325, #120 for today for an 8-week release. Dr. Fredi Pulido will write these prescriptions today. He did see the patient and collaborated care. 3. We refilled the Voltaren gel and sent that electronically today. The patient finds this beneficial in her joint pain. <ELECTRONICALLY SIGNED> By: Eugenie Cano 06/22/19 0844 1045 [id number] Eugenie santana
== END ==
LOC: PAIN 06:53
DX: M17.11 Unilateral primary osteoarthritis, right knee (principal); M48.061 Spinal stenosis, lumbar region without neurogenic claudication; E66.09 Other obesity due to excess calories; G89.4 Chronic pain syndrome; Z79.891 Long term (current) use of opiate analgesic

== ENCOUNTER → 2019-09-26 | Outpatient (CLI) | payer OTHER ==
[~2019-09-26] VITALS: Ht 154.9 cm; Wt 108.0 kg
[~2019-09-26] MED LIST changes: +OXYCODONE-ACET1 EAC2 PO
[2019-09-26 10:13] VITALS: BP 120/64
--- NOTE | 2019-09-26 10:21 | NUR ---
Pain Clinic Assessment: 1. History of Osteoarthritis: B/L ANKLE B/L KNEES B/L HANDS History of Rheumatoid Arthritis: Not Applicable 2. Height: 5 ft. 1 in. 154.9 cm. Weight: 238.2 lb. oz. 108.047 kg. Patient's BMI: 45.0 3. Vital Signs: BP: 120/64 Pulse: 80 Resp: 18 Temp: 02 Sat: 100 ECG Mon: 4. Pain Intensity: 6 5. Fall Risk: Dizziness: N Needs help standing or walking: N Fallen in the last 3 months: N Fall risk comments: 6. Patient on Blood Thinner: None 7. History of Hypertension: N 8. Opioid Therapy greater than 6 weeks: Y Opiate Contract Signed: 01/30/16 9. Risk Assessment Tool Provided: 07/14 LOW RISK 10. Functional Assessment Tool: 11. Recreational Drug Use: Never Drug Type: Tobacco Use: Never Smoker Tobacco Type: Amount or Packs/day: How Many Years: Alcohol Use: No Frequency: Quant:
--- NOTE | 2019-09-28 14:50 | HPC ---
[facility] [address] [address] PAIN MANAGEMENT CONSULTATION Name: MADDY HERNANDES [facility] #: [facility] [id number] Admission: 09/26/19 Attend Phys: Eugenie Cano Discharge: Date of : 48 Report #: [id number] THIS REPORT FOR: cc: Gerardo Solorio Steve T. DO Hocker,Eugenie HALLMAN ~ DATE OF SERVICE: 09/26/2019 CHIEF COMPLAINT: Bilateral knee pain, chronic axial back pain and right ankle pain. HISTORY OF PRESENT ILLNESS: This is a very pleasant 69-year-old female who returns to the pain clinic today for refill of her medications. She feels that these are beneficial in helping treat her ongoing low back pain and chronic knee pain. Today, she is also complaining of some right ankle pain, rating her pain score as 6/10. It is a constant, aching pain, worse with weather changes such as cold and rainy days as well as walking. She finds her spinal cord stimulator and her medications very beneficial. She denies any problems with constipation or daytime sleepiness. She also finds her diclofenac gel very beneficial in helping with her knee pain. ALLERGIES: AMITRIPTYLINE, VESICARE TOVIAZ. CURRENT LIST OF MEDICATIONS: Oxycodone 10/325, diclofenac gel, omeprazole, oxybutynin, Wellbutrin, calcium, aspirin, vitamin D, meloxicam, albuterol, guaifenesin, Singulair, Coenzyme, Celexa, Coreg, Lipitor, melatonin and torsemide. PQRS: 1. She has arthritic changes in her spine, bilateral knees and ankles. Does not being treated for rheumatoid arthritis. 2. Height is 5 feet 1 inch, weight is 238, BMI is 45. Vital signs 120/64, pulse is 80, respirations 18, oxygen sat is 100. 3. Pain score is 6/10. 4. Denies dizziness. Does need assistance with a walker. She has not fallen in the last 3 months. The patient is not on any blood thinners, but does take medicine for hypertension. Her opioid therapy is greater than 6 weeks; therefore, an opioid signed contract is on the chart. Risk assessment tool is low. Functional assessment is low. Functional assessment is 54/70. 5. Recreational drug use, she denies, not a smoker and does not drink alcohol. According to the prescription note, she fills appropriately. She has a urine drug screen that is on file that is appropriate for her medications. According to the CDC guidelines, her morphine milliequivalent is 45 or [address] [address] PAIN MANAGEMENT CONSULTATION Name: MADDY HERNANDES Room #: REG Petros Randall#: [id number] Admission: 09/26/19 Attend Phys: Eugenie Cano Discharge: Date of : 48 Report #: [id number] PHYSICAL EXAMINATION: GENERAL: This is alert and orientated, morbidly obese 69-year-old female who appears her stated age, placing her current pain score at 6/10. She is a good historian. HEENT: Normocephalic, atraumatic. Extraocular eye muscles are intact. Mucous membranes are moist. EXTREMITIES: No clubbing, no cyanosis, no edema. She uses a walker at all times. MUSCULOSKELETAL: She has pain in her bilateral knees with just increased with standing and walking. No swelling noted. She complains of axial back pain, has a spinal cord stimulator present in her buttock. Her lower extremities strength is symmetrical, but deconditioned at 4/5, using a walker at all times. IMPRESSION: 1. Chronic axial back pain. 2. Osteoarthritis of the right knee. 3. Chronic left knee pain with total knee replacement. 4. Spinal stenosis of the lumbar spine. 5. Morbid obesity. 6. Chronic intractable pain. 7. Opioid dependency under written opioid agreement. We reviewed the fact that opiate medications are being used to provide analgesia adequate to support activities of daily living, not attempting to achieve a specific pain score on the 0-10 Visual Analog Scale. The current opiate medications are providing sufficient analgesia to allow the patient to participate in activities of daily living. The patient is not exhibiting any aberrant behavior suggestive of drug diversion. The patient is not having any adverse reactions to medications. The patient is not suffering from daytime somnolence or mental acuity changes. The patient is managing opiate-induced constipation with appropriate eopd-dhb-pmzmoev agents and dietary considerations. The patient was counseled on concern for caution with operating a motor vehicle while using opiate medications. PLAN: 1. We discussed treatment options with the patient today. The patient finds the diclofenac gel very beneficial in controlling her pain on her knees along with her opioids. Today, we will refill her oxycodone , #100. These will be written for today for an 8-week supply by Dr. Ed Angeles. 2. The patient does not need a Voltaren gel. She has plenty of refills currently that we faxed in. 3. The patient denies any somnolence or constipation issues as a result of her [facility] [address] [place] [address] PAIN MANAGEMENT CONSULTATION Name: MADDY HERNANDES Room #: POLL[facility] PimentelBridget#: [id number] Admission: 09/26/19 Attend Phys: Eugenie Cano Discharge: Date of : 48 Report #: [id number] medications. The patient is seen today in collaboration with Dr. Ed Angeles who did see the patient as well today. <ELECTRONICALLY SIGNED> By: Eugenie Cano 09/28/19 1450 [id number] Eugenie Cano /wiley
== END ==
LOC: PAIN 06:48
DX: M48.061 Spinal stenosis, lumbar region without neurogenic claudication (principal); G89.29 Other chronic pain; M17.11 Unilateral primary osteoarthritis, right knee; E66.01 Morbid (severe) obesity due to excess calories; Z88.8 Allergy status to other drugs, medicaments and biological substances; Z79.899 Other long term (current) drug therapy

== ENCOUNTER → 2019-12-27 | Outpatient (CLI) | payer OTHER ==
[~2019-12-27] VITALS: Ht 154.9 cm; Wt 109.8 kg
[~2019-12-27] MED LIST changes: +VITAMIN K100 MCG PO
[2019-12-27 12:44] VITALS: BP 151/67
--- NOTE | 2019-12-27 12:48 | NUR ---
Pain Clinic Assessment: 1. History of Osteoarthritis: B/L ANKLE B/L KNEES B/L HANDS History of Rheumatoid Arthritis: Not Applicable 2. Height: 5 ft. 1 in. 154.9 cm. Weight: 242.0 lb. oz. 109.771 kg. Patient's BMI: 45.7 3. Vital Signs: BP: 151/67 Pulse: 67 Resp: 16 Temp: 02 Sat: 96 ECG Mon: 4. Pain Intensity: 6 5. Fall Risk: Dizziness: Y Needs help standing or walking: Y Fallen in the last 3 months: N Fall risk comments: 6. Patient on Blood Thinner: None 7. History of Hypertension: Y 8. Opioid Therapy greater than 6 weeks: Y Opiate Contract Signed: 01/30/16 9. Risk Assessment Tool Provided: 07/14 LOW RISK 10. Functional Assessment Tool: 11. Recreational Drug Use: Never Drug Type: Tobacco Use: Never Smoker Tobacco Type: Amount or Packs/day: How Many Years: Alcohol Use: No Frequency: Quant:
--- NOTE | 2019-12-28 08:42 | HPC ---
[facility] [address] [address] PAIN MANAGEMENT CONSULTATION Name: MADDY HERNANDES Room #: REG [facility]..#: [id number] Admission: 12/27/19 Attend Phys: Eugenie Cano Discharge: Date of : 48 Report #: [id number] THIS REPORT FOR: cc: Gerardo Solorio Steve T. DO Hocker, Amanda CNS ~ CC: BARBIE SETH DO DATE OF SERVICE: 12/27/2019 CHIEF COMPLAINT: Bilateral knee pain, chronic axial back pain and right ankle pain. HISTORY OF PRESENT ILLNESS: This is a very pleasant 69-year-old female who returns to the pain clinic today for medication management. She has been having ongoing low back pain, bilateral leg and knee pain and right ankle pain. She states that pain score is 6/10. It is an aching, constant pain, worse with walking and weather changes. She does believe that her medication has been beneficial as well as the spinal cord stimulator. She does use Voltaren gel on her joints as well and would like refills of that as well as her pain medicine today. She denies any problems with daytime sleepiness or constipation. ALLERGIES: AMITRIPTYLINE, VESICARE and TOVIAZ. CURRENT LIST OF MEDICATIONS: Vitamin K, oxycodone 10/325 p.r.n., Voltaren gel, omeprazole, turmeric, oxybutynin, Wellbutrin, calcium, aspirin, vitamin D, Mobic, Ventolin, Mucinex, Singulair, Coenzyme, Celebrex, Coreg, Lipitor, melatonin, torsemide. PQRS: 1. She does have diffuse osteoarthritis in her knees, ankles and hands. Denies any rheumatoid arthritis. 2. Height is 5 feet 1, Weight is 242, BMI is 45. 3. Vital signs 151/67, pulse is 67, respirations 16, oxygen sat is 96. 4. Denies dizziness. Does use a walker for ambulation, has not fallen in the last 3 months. 5. The patient is not on any blood thinners, but does take medicine for hypertension. 6. Opioid therapy is greater than 6 weeks; therefore, an opioid signed contract is on the chart. Risk assessment tool is low. Functional assessment is 54/70. 7. Recreational drug use, she denies. She is not a smoker and does not drink alcohol. According to the prescription monitoring system, the patient is filling appropriately in a timely fashion. According to the CDC guidelines, her morphine milliequivalent is 60 MMEs per day. There [place] [address] PAIN MANAGEMENT CONSULTATION Name: MADDY HERNANDES Room #: REG [facility] Randall#: [id number] Admission: 12/27/19 Attend Phys: Eugenie Cano Discharge: Date of : 48 Report #: [id number] the chart that is appropriate as well for this patient. PHYSICAL EXAMINATION: GENERAL: This is alert and orientated, well-developed, morbidly obese 69-year-old female who appears her stated age, placing her current pain score at 6/10. She is a good historian. Her speech is fluent. HEENT: Normocephalic, atraumatic. Extraocular eye muscles are intact. Mucous membranes are moist. She is wearing a mask. MUSCULOSKELETAL: She has tenderness in her bilateral knees. No swelling noted today. Pain is increased with ambulation. 1+ edema in her right ankle present today, which has tenderness as well. Her lower extremity strength is deconditioned at 4/5. She does use a walker at all times and has an antalgic gait. IMPRESSION: 1. Chronic axial back pain. 2. Osteoarthritis, bilateral knees with left knee replacement. 3. Spinal stenosis of the lumbar spine. 4. Morbid obesity. 5. Chronic intractable pain. 6. Opioid dependency with opioid medications under agreement. We reviewed the fact that opiate medications are being used to provide analgesia adequate to support activities of daily living, not attempting to achieve a specific pain score on the 0-10 Visual Analog Scale. The current opiate medications are providing sufficient analgesia to allow the patient to participate in activities of daily living. The patient is not exhibiting any aberrant behavior suggestive of drug diversion. The patient is not having any adverse reactions to medications. The patient is not suffering from daytime somnolence or mental acuity changes. The patient is managing opiate-induced constipation with appropriate jtrt-kio-vaergbh agents and dietary considerations. The patient was counseled on concern for caution with operating a motor vehicle while using opiate medications. A physical exam was performed and the patient's functional status was evaluated. All patients with back pain were advised against the bed rest greater than 4 days and were advised to return to normal activities. Pain score assessment was noted and the treatment plan was reviewed with the patient. All current medications, both prescribed and OTC were reviewed and reconciled on the electronic medical record. Tobacco screening was accomplished and smoking cessation was advised when indicated. BMI was noted and diet/exercise modification was recommended for all patients following outside normal parameters. I reviewed with the patient today their responsibilities to safeguard prescription medications, reviewed their responsibility to utilize medications [address] [address] PAIN MANAGEMENT CONSULTATION Name: MADDY HERNANDES Room #: REG [facility]#: [id number] Admission: 12/27/19 Attend Phys: Eugenie Cano Discharge: Date of : 48 Report #: [id number] only as prescribed by the physician. They are to seek and receive pain medications only from 1 physician group ( [facility]). They are to use 1 pharmacy and keep the clinic informed if they change pharmacies. Their responsibilities include making followup visits in a timely fashion and to avoid abrupt discontinuation of medication usage. Their responsibilities further include bringing their medications (bottles from the pharmacy with residual pills) to the visit for possible confirmation of pill counts and the patient understands it is their responsibility to submit to random drug screens to ensure both that the medications prescribed are present, and that no other controlled substances are present. All prescriptions provided today were generated electronically. PLAN: 1. We discussed treatment options with the patient today. The patient states her medications are beneficial helping her be as active as she would like. She is currently caring for her 2 grandchildren all summer. Due to the COVID outbreak they are unable to go to daycare. This has been keeping her more active. At times increased pain, but she has been using her Voltaren gel slightly more. She does request refills of this. We will send electronically to her pharmacy for 2 tubes with 2 additional refills. We did encourage the patient to try some dcod-yvu-kkbpges medication to see if it is cost saving to her. 2. We will send electronically her oxycodone 10/, #100. The patient able to take 3-4 times a day. Scripts sent for a total of [address] Barbie Seth. 3. The patient will return in 3 months' time. <ELECTRONICALLY SIGNED> By: Eugenie Cano 12/28/19 [id number] Eugenie Cano /nt
== END ==
LOC: PAIN 06:53
PROVIDERS: ATTEND Clinical Nurse Specialist Adult Health
DX: M17.0 Bilateral primary osteoarthritis of knee (principal); M25.571 Pain in right ankle and joints of right foot; M54.9 Dorsalgia, unspecified; M48.061 Spinal stenosis, lumbar region without neurogenic claudication; E66.01 Morbid (severe) obesity due to excess calories; G89.29 Other chronic pain; F11.20 Opioid dependence, uncomplicated; Z88.8 Allergy status to other drugs, medicaments and biological substances; Z96.652 Presence of left artificial knee joint; Z79.899 Other long term (current) drug therapy

== ENCOUNTER → 2020-03-26 | Outpatient (CLI) | payer OTHER ==
[~2020-03-26] VITALS: Ht 154.9 cm; Wt 104.9 kg
[2020-03-26 09:22] VITALS: BP 143/102
--- NOTE | 2020-03-26 09:25 | NUR ---
Pain Clinic Assessment: 1. History of Osteoarthritis: B/L ANKLE B/L KNEES B/L HANDS History of Rheumatoid Arthritis: Not Applicable 2. Height: 5 ft. 1 in. 154.9 cm. Weight: 231.2 lb. oz. 104.872 kg. Patient's BMI: 43.7 3. Vital Signs: BP: 143/102 Pulse: 86 Resp: 20 Temp: 02 Sat: 96 ECG Mon: 4. Pain Intensity: 5 5. Fall Risk: Dizziness: N Needs help standing or walking: Y Fallen in the last 3 months: Y Fall risk comments: 6. Patient on Blood Thinner: None 7. History of Hypertension: Y 8. Opioid Therapy greater than 6 weeks: Y Opiate Contract Signed: 01/30/16 9. Risk Assessment Tool Provided: 07/14 LOW RISK 10. Functional Assessment Tool: 11. Recreational Drug Use: Never Drug Type: Tobacco Use: Never Smoker Tobacco Type: Amount or Packs/day: How Many Years: Alcohol Use: No Frequency: Quant:
--- NOTE | 2020-03-26 13:27 | HPC ---
[facility] [address] [address] PAIN MANAGEMENT CONSULTATION Name: MADDY HERNANDES [id number] Admission: 03/26/20 Attend Phys: Eugenie Cano Discharge: Date of : 48 Report #: [id number] THIS REPORT FOR: cc: Gerrado Solorio Steve T. DO Hocker, Amanda CNS ~ CC: Ed Angeles DO DATE OF SERVICE: 03/26/2020 CHIEF COMPLAINT: Bilateral knee pain, chronic axial back pain. HISTORY OF PRESENT ILLNESS: This is a 69-year-old female who returns to the pain clinic today for a refill of her medications. Today, she is reporting her pain at a 5/10. She feels overall she is doing quite well on her current regimen of oxycodone and Voltaren gel. She reports a pain score of 5/10 in her knees and lower back. She does use a walker occasionally, but today she is in a wheelchair for any long distances. She uses her spinal cord stimulator at all times as well to help control her pain. She believes that is beneficial as well as her medications. The patient does report that she did fall last night. She did not injure herself. She was able to scoot across the floor and get on the steps to pull herself up. She has no tenderness or bruises that she is aware of. She does report feeling slightly weaker in the past few days before she did fall and was not using a cane or walker at the present time. She is accompanying with her today. ALLERGIES: AMITRIPTYLINE, VESICARE and TOVIAZ. CURRENT LIST OF MEDICATIONS: Oxycodone 10/325 p.r.n., diclofenac gel, vitamin K, omeprazole, turmeric, oxybutynin, Wellbutrin, calcium, aspirin, vitamin D, meloxicam, albuterol, Mucinex, Singulair, Coenzyme Q10, Celexa, Coreg, Lipitor, melatonin and torsemide. PQRS: 1. She has osteoarthritis in her knees, hands and ankles. Denies rheumatoid arthritis. 2. Height is 5 feet 1 inch, weight is 231, BMI is 43. 3. Vital signs: Blood pressure 143/102, pulse is 86, respirations 20, oxygen sat is 96. Pain score is 5/10. Fall risk. Denies dizziness. Does need assistance with walking. She is in a wheelchair today, has fallen in the last 3 months. The patient is not on any blood thinners, but does take medicine for hypertension despite it being elevated today. Opioid therapy is greater than 6 weeks; therefore, an opioid signed contract is on the chart. Risk assessment is low. Functional assessment is 54/70. Recreational drug use, she denies. She is not a smoker and [place] [address] PAIN MANAGEMENT CONSULTATION Name: MADDY HERNANDES Room #: REG [facility] Randall#: [id number] Admission: 03/26/20 Attend Phys: Eugenie Cano Discharge: Date of : 48 Report #: [id number] According to the prescription monitoring system, the patient is filling appropriately. She is due to fill her medications this week, filling them in a timely fashion. Her morphine mEq according to the CDC guidelines is less than 50 MMEs per day. There is an opioid drug screen in the chart that is appropriate for her medications. We will recheck that at her next visit. PHYSICAL EXAMINATION: GENERAL: This is alert and orientated, morbidly obese 69-year-old female who appears her stated age, placing her current pain score at 5/10 today. HEENT: Normocephalic, atraumatic. Extraocular eye muscles are intact. She is wearing a mask. MUSCULOSKELETAL: She has tenderness in her bilateral knees with no edema noted. She does have lower extremity 1+ edema noted in her right ankle. She has an antalgic gait and is in a wheelchair today. Complains of axial low back pain in the lumbosacral region. IMPRESSION: 1. Chronic axial back pain. 2. Osteoarthritis involving her knees and ankles with left knee replacement. 3. Spinal stenosis of lumbar spine. 4. Morbid obesity. 5. Chronic intractable pain. 6. Opioid dependency under written agreement. We reviewed the fact that opiate medications are being used to provide analgesia adequate to support activities of daily living, not attempting to achieve a specific pain score on the 0-10 Visual Analog Scale. The current opiate medications are providing sufficient analgesia to allow the patient to participate in activities of daily living. The patient is not exhibiting any aberrant behavior suggestive of drug diversion. The patient is not having any adverse reactions to medications. The patient is not suffering from daytime somnolence or mental acuity changes. The patient is managing opiate-induced constipation with appropriate vnjp-ave-cbtlrrl agents and dietary considerations. The patient was counseled on concern for caution with operating a motor vehicle while using opiate medications. PLAN: 1. We discussed treatment options with the patient today. The patient is feeling her medication very beneficial in relieving most of her pain. We did discuss diclofenac gel is now xefm-yxj-hxkbyck. Her insurance plan covers 2 tubes at $47. According to our information, she would be able to get 2 tubes at [facility] for $20, so we will not write a prescription for this medication. She can fill it when she picks up her opioid medication and apply it as she has in the past, which she finds very beneficial. 2. We will resend prescriptions for her oxycodone , #100. The patient to [facility] [address] [place] [address] PAIN MANAGEMENT CONSULTATION Name: MADDY HERNANDES Room #: REG [facility] Randall#: [id number] Admission: 03/26/20 Attend Phys: Eugenie Cano Discharge: Date of : 48 Report #: [id number] take 3 tablets most days occasionally 4 if need be, we may be able to reduce this number if she continues to need those medications. Scripts were sent by Dr. Ed Angeles for today, 4-week and 8-week supply. 3. At the next visit, we will check a random drug screen on this patient. The patient is seen today in collaboration with Dr. Ed Angeles. <ELECTRONICALLY SIGNED> By: Eugenie Cano 03/26/20 1327 [id number] Eugenie Cano /nt
== END ==
LOC: PAIN 06:40
PROVIDERS: ATTEND Clinical Nurse Specialist Adult Health
DX: G89.29 Other chronic pain (principal); M17.0 Bilateral primary osteoarthritis of knee; M54.5 Low back pain; E66.01 Morbid (severe) obesity due to excess calories; Z96.652 Presence of left artificial knee joint; F11.20 Opioid dependence, uncomplicated; Z88.8 Allergy status to other drugs, medicaments and biological substances; Z79.899 Other long term (current) drug therapy

== ENCOUNTER → 2020-06-19 | Outpatient (CLI) | payer OTHER ==
[~2020-06-19] VITALS: Ht 154.9 cm; Wt 107.0 kg
[~2020-06-19] MED LIST changes: +WELLBUTRIN XL300 MG PO
[2020-06-19 09:32] VITALS: BP 125/74
--- NOTE | 2020-06-19 09:37 | NUR ---
Pain Clinic Assessment: 1. History of Osteoarthritis: B/L ANKLE B/L KNEES B/L HANDS History of Rheumatoid Arthritis: Not Applicable 2. Height: 5 ft. 1 in. 154.9 cm. Weight: 236.0 lb. oz. 107.049 kg. Patient's BMI: 44.6 3. Vital Signs: BP: 125/74 Pulse: 88 Resp: 16 Temp: 02 Sat: 98 ECG Mon: 4. Pain Intensity: 5-6 5. Fall Risk: Dizziness: N Needs help standing or walking: N Fallen in the last 3 months: N Fall risk comments: 6. Patient on Blood Thinner: None 7. History of Hypertension: Y 8. Opioid Therapy greater than 6 weeks: Y Opiate Contract Signed: 01/30/16 9. Risk Assessment Tool Provided: 1 10. Functional Assessment Tool: 54/ 11. Recreational Drug Use: Never Drug Type: Tobacco Use: Never Smoker Tobacco Type: Amount or Packs/day: How Many Years: Alcohol Use: No Frequency: Quant:
== END ==
LOC: PAIN 06:47
PROVIDERS: ATTEND Anesthesiology Pain Medicine
DX: M48.061 Spinal stenosis, lumbar region without neurogenic claudication (principal); E66.01 Morbid (severe) obesity due to excess calories; G89.4 Chronic pain syndrome; M19.072 Primary osteoarthritis, left ankle and foot; Z79.891 Long term (current) use of opiate analgesic; Z96.652 Presence of left artificial knee joint; Z90.710 Acquired absence of both cervix and uterus

== ENCOUNTER → 2020-07-30 | Outpatient (CLI) | payer OTHER ==
[~2020-07-30] VITALS: Ht 154.9 cm; Wt 105.7 kg
[2020-07-30 11:29] VITALS: BP 93/59
--- NOTE | 2020-07-30 11:35 | NUR ---
Pain Clinic Assessment: 1. History of Osteoarthritis: B/L ANKLE B/L KNEES B/L HANDS History of Rheumatoid Arthritis: Not Applicable 2. Height: 5 ft. 1 in. 154.9 cm. Weight: 233.0 lb. oz. 105.688 kg. Patient's BMI: 44.0 3. Vital Signs: BP: 93/59 Pulse: 93 Resp: 18 Temp: 02 Sat: 100 ECG Mon: 4. Pain Intensity: 5 5. Fall Risk: Dizziness: N Needs help standing or walking: N Fallen in the last 3 months: N Fall risk comments: 6. Patient on Blood Thinner: None 7. History of Hypertension: Y 8. Opioid Therapy greater than 6 weeks: Y Opiate Contract Signed: 01/30/16 9. Risk Assessment Tool Provided: 1 10. Functional Assessment Tool: 54/ 11. Recreational Drug Use: Current within past 3 mos Drug Type: MJ Tobacco Use: Never Smoker Tobacco Type: Amount or Packs/day: How Many Years: Alcohol Use: No Frequency: Quant:
--- NOTE | 2020-07-31 13:35 | HPC ---
[facility] [address] [place] [address] PAIN MANAGEMENT CONSULTATION Name: MADDY HERNANDES Room #: REG [facility] Margarito.#: [id number] Admission: 07/30/20 Attend Phys: Ed Angeles DO Discharge: Date of : 48 Report #: [id number] THIS REPORT FOR: cc: Gerardo Solorio Steve T. DO Johnson, James E. DO ~ DATE OF SERVICE: 07/30/2020 CHIEF COMPLAINT: Low back pain, left lower extremity pain. HISTORY OF PRESENT ILLNESS: As you know, the patient is a 70-year-old morbidly obese female with longstanding history of low back pain, left lower extremity pain. She has been followed by [facility] since her initial visits of September 2015. At that time, the patient was started on treatment for suspected lumbar radiculopathy. She is stabilized on medication by my partner, Dr. Marcos Angeles prior to his leaving our clinic. She continues to return for medication management. At our visit of 06/19/2020, the patient underwent urine drug screen, which showed positive for tetrahydrocannabinoid. She was brought back today to discuss these findings and our concerns about the use of illegal substances along with the use of opioid medications. The patient today is placing pain score at 5/10. She has suffered no new injury or trauma. She has had no changes in medical history since our last visit. ALLERGIES: AMITRIPTYLINE, VESICARE, AND TOVIAZ. CURRENT MEDICATIONS: Percocet 10/325 one tab every 6 hours p.r.n. for pain, diclofenac sodium apply topically up to 4 times a day, bupropion 300 mg once a day, vitamin K 100 mcg per day, omeprazole 40 mg per day, turmeric 1 tablet per day, oxybutynin 5 mg once a day, calcium carbonate 1 tab per day, aspirin 81 mg per day, vitamin D3 2000 units once a day, meloxicam 7.5 mg once a day, albuterol 2 puffs q. 4 hours p.r.n., guaifenesin 600 mg every 12 hours, montelukast sodium 10 mg per day, Coenzyme Q10 200 mg once a day, citalopram 20 mg per day, carvedilol 6.25 mg b.i.d., atorvastatin 20 mg once a day, melatonin 3 mg p.o. at bedtime, torsemide 5 mg per day. SOCIAL HISTORY: The patient denies tobacco use. Denies IV or illicit drug use. Denies any chronic alcohol use. She is retired. She is unaccompanied today. IMAGING: No new imaging available. PQRS: The patient has known arthritic changes of the lumbar spine, bilateral knees, hips and hands as well as ankles. No rheumatoid arthritis. She is placing current pain score 5/10. She is not a fall risk, has not had a fall in last 3 months, though she is utilizing a roller walker for ambulation and balance. She is not on blood thinners, but is treated for hypertension. She is on chronic opioids and is under contract to receive those opioids with [facility] [address] [address] PAIN MANAGEMENT CONSULTATION Name: MADDY HERNANDES Room #: REG [facility].#: [id number] Admission: 07/30/20 Attend Phys: Ed Angeles DO Discharge: Date of : 48 Report #: [id number]. Her assessment for abuse of opioids is minimal based on our assessment tool. Pain impact 54/70, severe interference of daily activities secondary to pain. PHYSICAL EXAMINATION: VITAL SIGNS: Blood pressure 93/59, pulse is 83, respiratory rate 18 and unlabored. The patient is 100% on room air. Height 5 feet 1 inch tall, weight 233 pounds, BMI calculated 44.0. GENERAL: Well-developed, well-nourished, well-hydrated, class III, severely morbidly obese 70-year-old female appearing stated age, pain is rated today 5/10. HEENT: Normocephalic, atraumatic. Pupils equal, round and reactive. The patient is wearing a mask in compliance with COVID-19 regulations. EXTREMITIES: Show no clubbing, no appreciable edema. MUSCULOSKELETAL: Lower extremity strength is equal and symmetrical with deconditioning noted bilaterally. She is using a roller walker for ambulation. She is intact to light touch from L1 through S2 dermatomes. Seated straight leg raising negative. Supine straight leg raising negative. ASSESSMENT: 1. Symptomatic lumbar radiculopathy. 2. Spinal stenosis of lumbar spine. 3. Lumbosacral spondylosis with radiculopathy. 4. Class 3 morbid obesity. 5. Opioid dependency under opioid contract with [facility]. 6. Chronic intractable pain. PLAN: 1. The patient returns today in followup visit where we have discussed our concerns about the recent urine drug screen obtained at our last visit. It does show positive for tetrahydrocannabinoid. This is an illegal substance. This is not allowed by our contract nor by the laws of the federal government in regards to use of opioids. The patient and I had a very long discussion about our concerns about tetrahydrocannabinoid in her urine. The patient states that this was a one-time event and that she has never done this before. I have cautioned the patient that I am willing to provide one chance at failing this test. Any further or future test failures will mandate a weaning off of opioid medications. The patient was advised that she could certainly obtain a medical marijuana license in the state of [place], which allows her to utilize tetrahydrocannabinoid, but will not allow her to receive opioid medications through a federally regulated opioid program. The patient has chosen to discontinue the activity of utilizing marijuana and has requested refills of medications. I did advise the patient that any time she may receive a telephone call for random drug screen. She is not to participate in illegal activity further. 2. The patient was provided refill prescription of her oxycodone 10/325 mg dose [facility] [address] [place] [address] PAIN MANAGEMENT CONSULTATION Name: MADDY HERNANDES Room #: REG [facility].#: [id number] Admission: 07/30/20 Attend Phys: Ed Angeles DO Discharge: Date of : 48 Report #: [id number] 1 tab p.o. q. 8 hours p.r.n. for pain. I have given the patient #100 tablets, releasing today and 4 weeks from today, 2 months' worth of medication. We will have the patient return in 2 months to discuss efficacy of the therapy and determine if this should be continued. 3. The patient will be provided a prescription of Voltaren gel 100 gram tubes. She is to receive 2 tubes with 2 refills. 4. We plan to see the patient back in followup visit in 2 months for medication management and to discuss further treatment options if necessary. <ELECTRONICALLY SIGNED> By: Ed Angeles DO 07/31/20 1335 1226 1252 Ed Angeles DO /nt
== END ==
LOC: PAIN 06:54
PROVIDERS: ATTEND Anesthesiology Pain Medicine
DX: M54.5 Low back pain (principal); M79.605 Pain in left leg

== ENCOUNTER → 2020-10-08 | Outpatient (CLI) | payer OTHER ==
[~2020-10-08] VITALS: Ht 154.9 cm; Wt 105.9 kg
[~2020-10-08] MED LIST changes: +VOLTAREN GEL 1100 G1 TOP
[2020-10-08 08:57] VITALS: BP 135/69
--- NOTE | 2020-10-08 09:16 | NUR ---
Pain Clinic Assessment: 1. History of Osteoarthritis: B/L ANKLE B/L KNEES B/L HANDS History of Rheumatoid Arthritis: Not Applicable 2. Height: 5 ft. 1 in. 154.9 cm. Weight: 233.4 lb. oz. 105.870 kg. Patient's BMI: 44.1 3. Vital Signs: BP: 135/69 Pulse: 73 Resp: 18 Temp: 02 Sat: 97 ECG Mon: 4. Pain Intensity: 8 avg 5. Fall Risk: Dizziness: N Needs help standing or walking: Y Fallen in the last 3 months: N Fall risk comments: 6. Patient on Blood Thinner: None 7. History of Hypertension: Y 8. Opioid Therapy greater than 6 weeks: Y Opiate Contract Signed: 01/30/16 9. Risk Assessment Tool Provided: 1 10. Functional Assessment Tool: 54/ 11. Recreational Drug Use: Current within past 3 mos Drug Type: Tobacco Use: Never Smoker Tobacco Type: Amount or Packs/day: How Many Years: Alcohol Use: No Frequency: Quant:
--- NOTE | 2020-10-09 13:26 | HPC ---
[facility] [address] [place] [address] PAIN MANAGEMENT CONSULTATION Name: MADDY HERNANDES Room #: REG [facility] Margarito.#: [id number] Admission: 10/08/20 Attend Phys: Eugenie Cano Discharge: Date of : 48 Report #: [id number] THIS REPORT FOR: cc: Gerardo Solorio Steve T. DO Hocker,Eugenie HALLMAN ~ DATE OF SERVICE: 10/08/2020 CHIEF COMPLAINT: Low back pain, left lower extremity pain, bilateral knee pain. HISTORY OF PRESENT ILLNESS: This is a 70-year-old female who returns to the pain clinic today for renewal of her opioid medications. Today, she is reporting her pain is most problematic in her bilateral knees, although she does continue to have ongoing low back pain and right ankle pain. She reports her pain score is 8/10. It is a constant, aching pain, worse with ambulation. She is sitting in her walker today and her has been pushing her in her walker. She reports that her spinal cord stimulator is very beneficial as well as her opioid medications, utilizing both of them every day. She denies any constipation that is not managed by eehy-xem-lbbtrob regimen and denies daytime sleepiness. The patient does report that she has fallen since her last visit. She did not injure herself in this fall. The patient reports no further use of any marijuana products since discussion with Dr. Ed Angeles in July and would like to continue her opioid medications as prescribed. She also reports having both her COVID vaccinations since her last visit. ALLERGIES: AMITRIPTYLINE, VESICARE, TOVIAZ. CURRENT LIST OF MEDICATIONS: Oxycodone 10/325 p.r.n., Voltaren gel, bupropion, vitamin K, omeprazole, turmeric, oxybutynin, calcium, aspirin, vitamin D, meloxicam, albuterol, Singulair, Coenzyme, Celexa, Coreg, Lipitor, melatonin and furosemide. PQRS: 1. She has osteoarthritic changes in her ankles, knees, back and hands. Denies any rheumatoid arthritis. 2. Height is 5 feet 1 inch, weight is 233, BMI is 44. 3. Vital signs 135/69, pulse is 73, respirations 18, oxygen sat is 97%. 4. Pain score is 8/10. 5. Denies dizziness. Does need assistance with ambulation and has fallen in the last 3 months. 6. The patient is not on any blood thinners, but does take medicine for hypertension. Her opioid therapy is greater than 6 weeks; therefore, an opioid signed contract is on the chart. Risk assessment is low. Functional assessment is 54/70. [address] [address] PAIN MANAGEMENT CONSULTATION Name: GRETAMADDY MOLINA Room #: REG CL Magaly.Estela.#: [id number] Admission: 10/08/20 Attend Phys: Eugenie Cano Discharge: Date of : 48 Report #: [id number] 7. Recreational drug use in the past. She is not a smoker and denies any alcohol use. According to the prescription monitoring system, her last fill was 09/02. She is due to fill her medications today. Her morphine mEq, average is 50-60 MME per day depending on usage. We will collect a random drug screen on her at her next visit due to the previous positive results of THC in her urine that was discussed at her last visit. PHYSICAL EXAMINATION: GENERAL: This is alert and orientated, well-developed, well-nourished class III, morbidly obese 70-year-old female who appears her stated age, rating her pain score today at 8/10. HEENT: Normocephalic, atraumatic. Pupils equal, round and reactive to light. She is wearing a mask. EXTREMITIES: No clubbing, no appreciable edema, tenderness in her knees bilaterally. MUSCULOSKELETAL: She uses a rolling walker for ambulation, has been pushing her in her walker today. MUSCULOSKELETAL: The patient has tenderness in her lumbosacral region. Seated to straight leg raising is negative. She has deconditioned bilaterally in her lower extremities. ASSESSMENT: 1. Symptomatic lumbar radiculopathy. 2. Spinal stenosis of lumbar spine. 3. Lumbosacral spondylosis with radiculopathy. 4. Class 3 morbid obesity. 5. Chronic intractable pain. 6. Complicated medical management under written opioid agreement as scheduled opioids. We reviewed the fact that opiate medications are being used to provide analgesia adequate to support activities of daily living, not attempting to achieve a specific pain score on the 0-10 Visual Analog Scale. The current opiate medications are providing sufficient analgesia to allow the patient to participate in activities of daily living. The patient is not exhibiting any aberrant behavior suggestive of drug diversion. The patient is not having any adverse reactions to medications. The patient is not suffering from daytime somnolence or mental acuity changes. The patient is managing opiate-induced constipation with appropriate bdnv-wal-jumpjnj agents and dietary considerations. The patient was counseled on concern for caution with operating a motor vehicle while using opiate medications. PLAN: 1. We discussed treatment options with the patient today. The patient finds [address] [address] PAIN MANAGEMENT CONSULTATION Name: MADDY HERNANDES Room #: REG CLPetros Randall#: [id number] Admission: 10/08/20 Attend Phys: Eugenie Cano Discharge: Date of : 48 Report #: [id number] her opioid medications very beneficial in controlling her pain. She would like renewal of those medications. She averages 3 tablets every day with occasional fourth tablet, scripts will be sent electronically by Dr. Angeles for refills of today and again in 4 weeks and her oxycodone 10/325, #100. 2. The patient does find her Voltaren gel beneficial on her multiple arthritic joints. We will renew this medication as well. 3. At the next appointment, we will collect another random drug screen. She has not been taking any tetracannabinoid products, so therefore, it should be free of that at her next random screening. Time spent with the patient in consultation, review of pertinent studies, clinical notes and physician reports, physical examination and correlation of physical finding, and the medical documentation to determine treatment 12 minutes. Time spent in preparation for an appointment review, the prescription monitoring reports, we reviewed previous records and proposed treatment options with review of current medications is 5 minutes. Time spent preparing and sending electronic prescriptions as collaborating physician and documentation of the visit and plan of treatment 8 minutes. Total time spent 25 minutes. <ELECTRONICALLY SIGNED> By: Eugenie Cano 10/09/20 1326 [id number] Eugenie Cano /wiley
== END ==
LOC: PAIN 06:50
PROVIDERS: ATTEND Clinical Nurse Specialist Adult Health
DX: M47.27 Other spondylosis with radiculopathy, lumbosacral region (principal); M79.605 Pain in left leg; M25.561 Pain in right knee; M25.562 Pain in left knee; M48.061 Spinal stenosis, lumbar region without neurogenic claudication; E66.01 Morbid (severe) obesity due to excess calories; G89.29 Other chronic pain; F11.20 Opioid dependence, uncomplicated; Z88.8 Allergy status to other drugs, medicaments and biological substances; Z79.899 Other long term (current) drug therapy

== ENCOUNTER → 2020-12-17 | Outpatient (CLI) | payer OTHER ==
[~2020-12-17] VITALS: Ht 154.9 cm; Wt 108.0 kg
[~2020-12-17] MED LIST changes: +DICLOFENAC SOD100 G1 TOP
[2020-12-17 09:41] VITALS: BP 104/67
--- NOTE | 2020-12-17 09:45 | NUR ---
Pain Clinic Assessment: 1. History of Osteoarthritis: B/L ANKLE B/L KNEES B/L HANDS History of Rheumatoid Arthritis: Not Applicable 2. Height: 5 ft. 1 in. 154.9 cm. Weight: 238.0 lb. oz. 107.956 kg. Patient's BMI: 45.0 3. Vital Signs: BP: 104/67 Pulse: 83 Resp: 18 Temp: 02 Sat: 93 ECG Mon: 4. Pain Intensity: 10 5. Fall Risk: Dizziness: N Needs help standing or walking: N Fallen in the last 3 months: N Fall risk comments: 6. Patient on Blood Thinner: None 7. History of Hypertension: Y 8. Opioid Therapy greater than 6 weeks: Y Opiate Contract Signed: 01/30/16 9. Risk Assessment Tool Provided: 1-LOW 10. Functional Assessment Tool: / 11. Recreational Drug Use: Never Drug Type: Tobacco Use: Never Smoker Tobacco Type: Amount or Packs/day: How Many Years: Alcohol Use: No Frequency: Quant:
--- NOTE | 2020-12-18 07:52 | HPC ---
[facility] [address] [address] PAIN MANAGEMENT CONSULTATION Name: MADDY HERNANDES Room #: REG [facility] M..#: [id number] Admission: 12/17/20 Attend Phys: Eugenie Cano Discharge: Date of : 48 Report #: [id number] THIS REPORT FOR: cc: Gerardo Solorio Steve T. DO Hocker, Amanda CNS ~ DOC #: [id number] cc: Ed Angeles DO, Steve T. Gialde, DO Amanda Hocker, [place] DATE OF SERVICE: 12/17/2020 CHIEF COMPLAINT: Low back pain, lower left extremity pain and bilateral knee pain. HISTORY OF PRESENT ILLNESS: This is a 70-year-old female who returns to the pain clinic today for renewal of her opioid medications. Today, she is reporting most significant pain is in her lower back and her bilateral knees. She is rating it at 10/10. She is unsure what she has been in the past couple of weeks that has caused this increase in pain. Today, she is having her spinal cord adjusted as well as here for opioid renewals. She describes her pain as an aching, constant sensation that is worse with any walking. Usually her medications have been beneficial, taking 3-4 tablets of Percocet a day as well as utilizing her spinal cord stimulator at all times. She does find Voltaren gel beneficial for her osteoarthritic joints, especially her knees. She denies constipation or daytime somnolence. Today, she is here with her who does assist her in some of her questions. ALLERGIES: AMITRIPTYLINE, VESICARE, TOVIAZ. CURRENT LIST OF MEDICATIONS: Diclofenac gel, oxycodone 10/325 q.i.d., p.r.n. Wellbutrin, vitamin K, omeprazole, turmeric, oxybutynin, calcium, aspirin, vitamin D, meloxicam, albuterol inhaler, guaifenesin, Singulair, CoQ10, Celexa, Coreg, Lipitor, melatonin and torsemide. PQRS: 1. She has osteoarthritic issues in her ankles, knees and hands. Denies any rheumatoid arthritis. Height is 5 feet 1, weight is 238, BMI is 45. 2. Vital signs 104/67, pulse is 83, respirations 18, oxygen sat is 93%. 3. Pain score is 10/10. 4. Denies dizziness, does not need help standing or walking, has not fallen in the last 3 months. 5. The patient is not on any blood thinners, but does take medicine for hypertension. 6. Opiate therapy is greater than 6 weeks; therefore, an opioid signed contract is on the chart. 7. Risk assessment is low. [facility] [address] [place] [address] PAIN MANAGEMENT CONSULTATION Name: MADDY HERNANDES Room #: REG VIOLA Randall#: [id number] Admission: 12/17/20 Attend Phys: Eugenie Cano Discharge: Date of : 48 Report #: [id number] 8. Functional assessment is 54/70. 9. Recreational drug use, she denies. She is not a smoker and does not drink alcohol. According to the prescription monitoring system, the patient is filling appropriately in a timely fashion. She is due to fill her medications today. Her morphine milliequivalent is 60 MME according to the CDC guidelines. We will collect a random drug screen on this patient today. The patient reports taking her last dose of medication this morning. PHYSICAL EXAMINATION: GENERAL: This is alert and orientated, morbidly obese 70-year-old female who appears her stated age, rating her pain score at 10/10. HEENT: Normocephalic, atraumatic. Pupils equal, round, reactive to light. She is wearing a mask. EXTREMITIES: No clubbing, no edema. She has tenderness in her knees bilaterally that increases with ambulation. MUSCULOSKELETAL: The patient has tenderness in the lumbosacral region of her back. Seated straight leg raising is negative. She is deconditioned bilaterally in her lower extremities at 4/5. She has a spinal cord stimulator battery in her left buttock. ASSESSMENT: 1. Symptomatic lumbar radiculopathy. 2. Spinal stenosis of lumbar spine. 3. Lumbosacral spondylosis with radiculopathy. 4. Osteoarthritis. 5. Class 3 morbid obesity. 6. Chronic intractable pain. 7. Complicated medical management utilizing scheduled opioid medications. PLAN: 1. We discussed treatment options with the patient today. The patient does find her medications beneficial, though in the past couple of weeks she is having increasing pain across her lumbar spine. She is here with [employer] today. They have adjusted her spinal cord stimulator and given her several different programs. The patient is instructed to call them within 2 weeks to see if this medication adjustment has been beneficial. 2. We will continue her on her oxycodone 10/325, #120. The patient is able to utilize 3 most days with occasionally a 4th. Scripts will be sent for 2 months. 3. We did collect a urine drug screen on this patient today. If it is found that she has any illegal substances as marijuana, which she has had in the past, she was informed that we will cancel her second prescription. The patient reports that she is no longer using any marijuana substances. 4. The patient also has Voltaren gel sent electronically which she finds beneficial on her osteoarthritic joints. Time spent with the patient in consultation, reviewing recent studies, clinical [facility] [address] [place] [address] PAIN MANAGEMENT CONSULTATION Name: MADDY HERNANDES Room #: REG [facility]..#: [id number] Admission: 12/17/20 Attend Phys: Eugenie Cano Discharge: Date of : 48 Report #: [id number] notes, physician reports, physical examination and correlation of findings and medical documentation to determine possible treatment options is 16 minutes. Time spent in preparation for appointment reviewing prescription monitoring reports, reviewing previous records and proposed treatment options, reviewing current medications is 5 minutes. Time spent preparing and sending electronic prescriptions with Dr. Ed Angeles, the collaborating physician, documentation of visit and plan of treatment is 5 minutes. Total time spent 26 minutes. [place] Mancuso/CARLOTA/NAEEM <ELECTRONICALLY SIGNED> By: Eugenie Cano 12/18/20 0752 1015 01 Eugenie Cano /nt
== END ==
LOC: PAIN 06:59
PROVIDERS: ATTEND Clinical Nurse Specialist Adult Health
DX: M47.27 Other spondylosis with radiculopathy, lumbosacral region (principal); M48.07 Spinal stenosis, lumbosacral region; M19.90 Unspecified osteoarthritis, unspecified site; E66.01 Morbid (severe) obesity due to excess calories; Z79.891 Long term (current) use of opiate analgesic; Z79.899 Other long term (current) drug therapy

== ENCOUNTER → 2021-02-18 | Outpatient (CLI) | payer OTHER ==
[~2021-02-18] VITALS: Ht 154.9 cm; Wt 103.5 kg
[2021-02-18 09:57] VITALS: BP 138/80
--- NOTE | 2021-02-18 10:10 | NUR ---
Pain Clinic Assessment: 1. History of Osteoarthritis: B/L ANKLE B/L KNEES B/L HANDS History of Rheumatoid Arthritis: Not Applicable 2. Height: 5 ft. 1 in. 154.9 cm. Weight: 228.2 lb. oz. 103.511 kg. Patient's BMI: 43.1 3. Vital Signs: BP: 138/80 Pulse: 71 Resp: 18 Temp: 02 Sat: 97 ECG Mon: 4. Pain Intensity: 4-5 5. Fall Risk: Dizziness: N Needs help standing or walking: N Fallen in the last 3 months: N Fall risk comments: 6. Patient on Blood Thinner: None 7. History of Hypertension: Y 8. Opioid Therapy greater than 6 weeks: Y Opiate Contract Signed: 01/30/16 9. Risk Assessment Tool Provided: 1-LOW 10. Functional Assessment Tool: 11. Recreational Drug Use: Never Drug Type: Tobacco Use: Never Smoker Tobacco Type: Amount or Packs/day: How Many Years: Alcohol Use: No Frequency: Quant:
--- NOTE | 2021-02-19 14:19 | HPC ---
[facility] [address] [place] [address] PAIN MANAGEMENT CONSULTATION Name: MADDY HERNANDES [facility]: [facility] [id number] Admission: 02/18/21 Attend Phys: Eugenie Cano Discharge: Date of : 48 Report #: [id number] THIS REPORT FOR: cc: Gerardo Solorio Steve T. DO Hocker, Amanda CNS ~ cc: Ed Angeles DO DATE OF SERVICE: 02/18/2021 CHIEF COMPLAINT: Low back pain, lower extremity pain and bilateral knee pain. HISTORY OF PRESENT ILLNESS: This is a 70-year-old female who returns to the pain clinic today for renewal of her medications. Today, she reports that her pain level is a 4-5, being very well controlled with her current regimen of oxycodone. She reports a significant portion of her pain is in her low back that has been slightly relieved with the spinal cord adjustments that were made at her last visit by the [facility]. She reports utilizing that during the daytime hours when she is up and more active. She does, however, continue to have bilateral knee pain as well as right ankle pain. She utilizes a walker at all times, which is also a wheelchair that her does assist her with at times. Overall, her pain is described the pain as constant aching sensation. Today, she would like renewals of her Voltaren gel, which she finds very beneficial in helping with her arthritic joints as well as her oxycodone. She denies constipation issues. She has been taking MiraLax every other day and feels that it is beneficial and denies any daytime somnolence. ALLERGIES: AMITRIPTYLINE, VESICARE, AND TOVIAZ. CURRENT LIST OF MEDICATIONS: Oxycodone 10/325 p.r.n., Voltaren gel, bupropion, vitamin K, omeprazole, tumeric, oxybutynin, calcium, aspirin, vitamin D, MiraLax, meloxicam, albuterol inhaler, guaifenesin, Singulair, CoQ10, Celexa, Coreg, atorvastatin, melatonin, and torsemide. PQRS: 1. She has osteoarthritic issues in her hands, knees, ankles ____. Denies any rheumatoid arthritis. Height is 5 feet 1 inch, weight is 228, BMI is 43. 2. Vital signs 138/80, pulse is 71, respirations 18, oxygen sat is 97%. 3. Pain score is 4-5. 4. Denies dizziness, does need assistance with ambulation. Utilizes a walker or wheelchair at times. Has not fallen in the last 3 months. 5. The patient is not on any blood thinners, but is on hypertension medicines. Opioid therapy is greater than 6 weeks; therefore, an opioid signed contract is on the chart. 6. Risk assessment is low. Functional assessment is 54/70. Recreational drug use, she denies. She is not a smoker, does not drink alcohol. [address] [address] PAIN MANAGEMENT CONSULTATION Name: MADDY HERNANDES Room #: REG VIOLA Randall#: [id number] Admission: 02/18/21 Attend Phys: Eugenie Cano Discharge: Date of : 48 Report #: [id number] According to the prescription monitoring system, the patient is filling appropriately in a timely fashion. She is due to fill her medications this week. We did check a random drug screen on her at her last visit, it was appropriate for her opioid medications though it was positive for gabapentin. The patient denies taking this medication. She does not describe any burning sensations. We will recheck this in the near future. PHYSICAL EXAMINATION: GENERAL: This is an alert and orientated, well-developed, morbidly obese 70-year-old female who appears her stated age, rating her pain score today at 4-5/10 today. HEENT: Normocephalic, atraumatic. Pupils equal, round, reactive to light. She is wearing a mask. EXTREMITIES: No clubbing, no cyanosis. Slight tenderness in her knees bilaterally and right ankle, pain is increased with ambulation. MUSCULOSKELETAL: She has tenderness in the lumbosacral region of her back. Seated straight leg raising is negative. She has a spinal cord stimulator battery in her left buttock. She is deconditioned bilaterally in lower extremities. Utilizes a walker or wheelchair. IMPRESSION: 1. Symptomatic lumbar radiculopathy. 2. Spinal stenosis of lumbar spine. 3. Lumbosacral spondylosis with radiculopathy. 4. Osteoarthritis. 5. Class 3 morbid obesity. 6. Chronic intractable pain. 7. Complicated medical management utilizing opioid medications. We reviewed the fact that opiate medications are being used to provide analgesia adequate to support activities of daily living, not attempting to achieve a specific pain score on the 0-10 Visual Analog Scale. The current opiate medications are providing sufficient analgesia to allow the patient to participate in activities of daily living. The patient is not exhibiting any aberrant behavior suggestive of drug diversion. The patient is not having any adverse reactions to medications. The patient is not suffering from daytime somnolence or mental acuity changes. The patient is managing opiate-induced constipation with appropriate vnhs-cvp-jqcvkak agents and dietary considerations. The patient was counseled on concern for caution with operating a motor vehicle while using opiate medications. A physical exam was performed and the patient's functional status was evaluated. All patients with back pain were advised against the bed rest greater than 4 days and were advised to return to normal activities. Pain score assessment was noted and the treatment plan was reviewed with the patient. All current medications, both prescribed and OTC were reviewed and reconciled on the [facility] [address] [place] [address] PAIN MANAGEMENT CONSULTATION Name: MADDY HERNANDES [facility] [id number] Admission: 02/18/21 Attend Phys: Eugenie Cano Discharge: Date of : 48 Report #: [id number] electronic medical record. Tobacco screening was accomplished and smoking cessation was advised when indicated. BMI was noted and diet/exercise modification was recommended for all patients following outside normal parameters. I reviewed with the patient today their responsibilities to safeguard prescription medications, reviewed their responsibility to utilize medications only as prescribed by the physician. They are to seek and receive pain medications only from 1 physician group ( [facility]). They are to use 1 pharmacy and keep the clinic informed if they change pharmacies. Their responsibilities include making followup visits in a timely fashion and to avoid abrupt discontinuation of medication usage. Their responsibilities further include bringing their medications (bottles from the pharmacy with residual pills) to the visit for possible confirmation of pill counts and the patient understands it is their responsibility to submit to random drug screens to ensure both that the medications prescribed are present, and that no other controlled substances are present. All prescriptions provided today were generated electronically. PLAN: 1. We discussed treatment options with the patient today. The patient feels her medications are beneficial in relieving the majority of her pain. We will continue her on her oxycodone 10/325, #100, sending medications for today and again in 4-week release. I did discuss with her there may be a supply chain issue, encouraged the patient not to take a short script unless she is willing to accept that for the month or we may call the pharmacy to change for 1 month time. The patient is agreeable with this. 2. We will continue her Voltaren gel, sending this electronically as well, 2 tubes with 2 refills. She finds it very beneficial for her osteoarthritic joints. 3. We did discuss her urine drug screen, it was positive for gabapentin. The patient reports not taking that medication. We will check another drug screen in the future, reminding her not to take any non-prescribed medications. Time spent with the patient in consultation, reviewing clinical notes and physician reports, physical examination and correlation of findings and medical documentation to determine possible treatment options 15 minutes. Time spent in preparation for appointment, reviewing prescription, monitoring reports, reviewing previous records, proposed treatment options and reviewing current medications, 5 minutes. Time spent preparing and sending electronic prescriptions with collaborating physician, Dr. Ed Angeles, documentation of visit and plan of treatment [address] [address] PAIN MANAGEMENT CONSULTATION Name: MADDY HERNANDES Room #: REG CLPetros Randall#: [id number] Admission: 02/18/21 Attend Phys: Eugenie Cano Discharge: Date of : 48 Report #: [id number] Total time spent 25 minutes. <ELECTRONICALLY SIGNED> By: Eugenie Cano 02/19/21 1419 [id number] [id number] Eugenie Cano /nt
== END ==
LOC: PAIN 06:43
PROVIDERS: ATTEND Clinical Nurse Specialist Adult Health
DX: G89.29 Other chronic pain (principal); M47.27 Other spondylosis with radiculopathy, lumbosacral region; M48.061 Spinal stenosis, lumbar region without neurogenic claudication; M19.90 Unspecified osteoarthritis, unspecified site; E66.01 Morbid (severe) obesity due to excess calories; Z68.41 Body mass index [BMI] 40.0-44.9, adult; Z88.8 Allergy status to other drugs, medicaments and biological substances; Z79.891 Long term (current) use of opiate analgesic; Z79.899 Other long term (current) drug therapy

== ENCOUNTER → 2021-04-23 | Outpatient (CLI) | payer OTHER ==
[~2021-04-23] VITALS: Ht 154.9 cm; Wt 114.2 kg
[~2021-04-23] MED LIST changes: +ARTHRITIS PAIN100 GM TOP
[2021-04-23 09:24] VITALS: BP 137/95
--- NOTE | 2021-04-23 11:35 | NUR ---
Pain Clinic Assessment: 1. History of Osteoarthritis: B/L ANKLE B/L KNEES B/L HANDS History of Rheumatoid Arthritis: Not Applicable 2. Height: 5 ft. 1 in. 154.9 cm. Weight: 251.8 lb. oz. 114.216 kg. Patient's BMI: 47.6 3. Vital Signs: BP: 137/95 Pulse: 81 Resp: 20 Temp: 02 Sat: 94 ECG Mon: 4. Pain Intensity: 5-6 5. Fall Risk: Dizziness: N Needs help standing or walking: N Fallen in the last 3 months: N Fall risk comments: 6. Patient on Blood Thinner: None 7. History of Hypertension: Y 8. Opioid Therapy greater than 6 weeks: Y Opiate Contract Signed: 01/30/16 9. Risk Assessment Tool Provided: 1-LOW 10. Functional Assessment Tool: / 11. Recreational Drug Use: Never Drug Type: Tobacco Use: Never Smoker Tobacco Type: Amount or Packs/day: How Many Years: Alcohol Use: No Frequency: Quant:
--- NOTE | 2021-04-24 09:59 | HPC ---
[facility] [address] [place] [address] PAIN MANAGEMENT CONSULTATION Name: MADDY HERNANDES Room #: REG [facility] Margarito.#: [id number] Admission: 04/23/21 Attend Phys: Eugenie Cano Discharge: Date of : 48 Report #: [id number] THIS REPORT FOR: cc: Gerardo Solorio Steve T. DO Hocker, Amanda CNS ~ cc: Gerardo Solorio DO, James E. Johnson, DO DATE OF SERVICE: 04/23/2021 CHIEF COMPLAINT: Low back pain, lower extremity pain and paresthesias. HISTORY OF PRESENT ILLNESS: This is a pleasant 70-year-old female who returns to the pain clinic today for ongoing pain management. She continues to have arthritic issues in her knees and ongoing low back pain. She does have a spinal cord stimulator that she utilizes every day. Today, she is reporting that the antenna is not functioning properly and she is scheduled to have a spinal cord stimulator device rep here, [employer] to evaluate the antenna. The patient also reports ongoing shoulder pain and ankle pain. She describes her pain as a constant achy sensation that is worse with any walking. She is in a wheelchair here today, but does utilize a walker at home per her report as well as her 's report. She denies any constipation issues that normally not managed with [id number] medications and overall, she believes the medication of oxycodone 3-4 times a day as well as her spinal cord stimulator device do afford her significant benefit and alleviate her pain. Today, she does rated at 4-5. The patient does report that she recently had her second cataract surgery completed and now can see significantly better. She is not wearing glasses today, but does have reading glasses that she has obtained. ALLERGIES: AMITRIPTYLINE, VESICARE, AND TOVIAZ. CURRENT LIST OF MEDICATIONS: Oxycodone 10/325, Voltaren gel, bupropion, vitamin K, omeprazole, tumeric, oxybutynin, calcium, aspirin, MiraLax, vitamin D, meloxicam, albuterol, guaifenesin, Singulair, co-enzyme, Celexa, Coreg, Lipitor, melatonin, and torsemide. PQRS: 1. The patient has osteoarthritis issues in her ankles, knees and hands. Denies any rheumatoid arthritis. 2. Height is 5 feet 1 inch, weight is 251, BMI is 47. 3. Vital signs: Blood pressure 137/95, pulse is 81, respirations 20, oxygen sat is 94. 4. Pain score is 5-6. 5. Fall risk. Denies dizziness, does not need help walking or standing, has not fallen in the last 3 months. 6. The patient is not on any blood thinners, [place] [address] PAIN MANAGEMENT CONSULTATION Name: MADDY HERNANDES Room #: REG [facility] Prakash#: [id number] Admission: 04/23/21 Attend Phys: Eugenie Cano Discharge: Date of : 48 Report #: [id number] hypertension. 7. Opioid therapy is greater than 6 weeks; therefore, an opioid signed contract is on the chart. 8. Risk assessment is low. Functional assessment is 54/70. 9. Recreational drug use, she denies. She is not a smoker and does not drink alcohol. According to the prescription monitoring system, she is filling in appropriately time. Her morphine mEq is 50 MME. There is a urine drug screen in the chart that is appropriate for her medications except for gabapentin, which she states she does not take. PHYSICAL EXAMINATION: GENERAL: This is alert and orientated, morbidly obese 70-year-old female who appears her stated age, rating her current pain score today at 6/10. HEENT: Normocephalic, atraumatic. Pupils equal, round and reactive to light. She is wearing a mask for COVID precautions. EXTREMITIES: No clubbing, no cyanosis. She does have tenderness in her knees bilaterally and her right ankle pain is increased with ambulation and she is in a wheelchair today. MUSCULOSKELETAL: She has tenderness in the lumbosacral region of her back. Seated straight leg raising is negative. She has a spinal cord stimulator in left buttock. She does utilize a walker at home and is in a wheelchair today. She is deconditioned in her lower extremities bilaterally, but does have good sensation. IMPRESSION: 1. Symptomatic lumbar radiculopathy. 2. Spinal stenosis of lumbar spine. 3. Lumbosacral spondylosis with radiculopathy. 4. Osteoarthritis affecting multiple joints. 5. Class 3 morbid obesity. 6. Chronic intractable pain. 7. Complicated medical management utilizing scheduled opioids. We reviewed the fact that opiate medications are being used to provide analgesia adequate to support activities of daily living, not attempting to achieve a specific pain score on the 0-10 Visual Analog Scale. The current opiate medications are providing sufficient analgesia to allow the patient to participate in activities of daily living. The patient is not exhibiting any aberrant behavior suggestive of drug diversion. The patient is not having any adverse reactions to medications. The patient is not suffering from daytime somnolence or mental acuity changes. The patient is managing opiate-induced constipation with appropriate wlvg-qnf-fobrmoa agents and dietary considerations. The patient was counseled on concern for caution with operating a motor vehicle while using opiate medications. [facility] [address] [place] [address] PAIN MANAGEMENT CONSULTATION Name: MADDY HERNANDES [id number] Admission: 04/23/21 Attend Phys: Eugenie LEXX Cano Discharge: Date of : 48 Report #: [id number] A physical exam was performed and the patient's functional status was evaluated. All patients with back pain were advised against the bed rest greater than 4 days and were advised to return to normal activities. Pain score assessment was noted and the treatment plan was reviewed with the patient. All current medications, both prescribed and OTC were reviewed and reconciled on the electronic medical record. Tobacco screening was accomplished and smoking cessation was advised when indicated. BMI was noted and diet/exercise modification was recommended for all patients following outside normal parameters. I reviewed with the patient today their responsibilities to safeguard prescription medications, reviewed their responsibility to utilize medications only as prescribed by the physician. They are to seek and receive pain medications only from 1 physician group ( [facility]). They are to use 1 pharmacy and keep the clinic informed if they change pharmacies. Their responsibilities include making followup visits in a timely fashion and to avoid abrupt discontinuation of medication usage. Their responsibilities further include bringing their medications (bottles from the pharmacy with residual pills) to the visit for possible confirmation of pill counts and the patient understands it is their responsibility to submit to random drug screens to ensure both that the medications prescribed are present, and that no other controlled substances are present. All prescriptions provided today were generated electronically. PLAN: 1. We discussed treatment options with the patient today. We will renew her oxycodone /. She utilizes 3-4 tablets a day, 100 in 1 month and finds this beneficial in alleviating a significant portion of her pain. Dr. Ed Angeles will send electronically 2 months of this medication. 2. I will continue her on the diclofenac gel. She uses this on her arthritic knees and ankles and occasionally on her hands as well. She finds this very beneficial if she uses it in the scheduled time frame. The p.r.n. use is not beneficial, she reports. Script sent electronically as well. 3. The [employer] rep is here to look at her antenna device for charging her spinal cord stimulator which the patient states is not working as it was in the past. The patient's has tried to find a temporary tape in until she has a new antenna sent to her. 4. The patient will return in 2 months or as needed for another appointment. Time spent in patient consultation, reviewing recent studies and clinical notes and physician reports, physical examination and correlation of findings and medical documentation to determine possible treatment options 15 minutes. Time spent in preparation for appointment reviewing prescription monitoring system, reviewing previous records and proposed treatment options, reviewing current medications 5 minutes. Time spent preparing and sending electronic [facility] [address] [place] [address] PAIN MANAGEMENT CONSULTATION Name: MADDY HERNANDES Room #: REG [facility]#: [id number] Admission: 04/23/21 Attend Phys: Eugenie Cano Discharge: Date of : 48 Report #: [id number] prescriptions with collaborating physician, Dr. Ed Angeles and documentation of visit and plan of treatment and discussing with [employer] rep 7 minutes. Total time spent 27 minutes. <ELECTRONICALLY SIGNED> By: Eugenie Cano 04/24/21 [id number] Eugenie Cano /nt
== END ==
LOC: PAIN 06:53
PROVIDERS: ATTEND Clinical Nurse Specialist Adult Health
DX: M47.27 Other spondylosis with radiculopathy, lumbosacral region (principal); M48.061 Spinal stenosis, lumbar region without neurogenic claudication; G89.29 Other chronic pain; I10 Essential (primary) hypertension; M19.90 Unspecified osteoarthritis, unspecified site; E66.01 Morbid (severe) obesity due to excess calories; Z79.899 Other long term (current) drug therapy; Z88.1 Allergy status to other antibiotic agents; Z88.8 Allergy status to other drugs, medicaments and biological substances

== ENCOUNTER → 2021-07-01 | Outpatient (CLI) | payer OTHER ==
[~2021-07-01] VITALS: Ht 154.9 cm; Wt 110.7 kg
[~2021-07-01] MED LIST changes: +MYRBETRIQ50 MG PO
[2021-07-01 09:13] VITALS: BP 145/70
--- NOTE | 2021-07-01 09:15 | NUR ---
Pain Clinic Assessment: 1. History of Osteoarthritis: B/L ANKLE B/L KNEES B/L HANDS History of Rheumatoid Arthritis: Not Applicable 2. Height: 5 ft. 1 in. 154.9 cm. Weight: 244.0 lb. oz. 110.678 kg. Patient's BMI: 46.1 3. Vital Signs: BP: 145/70 Pulse: 89 Resp: 16 Temp: 02 Sat: 96 ECG Mon: 4. Pain Intensity: 9 5. Fall Risk: Dizziness: N Needs help standing or walking: N Fallen in the last 3 months: N Fall risk comments: 6. Patient on Blood Thinner: None 7. History of Hypertension: Y 8. Opioid Therapy greater than 6 weeks: Y Opiate Contract Signed: 01/30/16 9. Risk Assessment Tool Provided: 1-LOW 10. Functional Assessment Tool: 11. Recreational Drug Use: Never Drug Type: Tobacco Use: Never Smoker Tobacco Type: Amount or Packs/day: How Many Years: Alcohol Use: No Frequency: Quant:
== END ==
LOC: PAIN 06:59
PROVIDERS: ATTEND Clinical Nurse Specialist Adult Health
DX: M47.27 Other spondylosis with radiculopathy, lumbosacral region (principal); M48.061 Spinal stenosis, lumbar region without neurogenic claudication; M19.90 Unspecified osteoarthritis, unspecified site; G89.29 Other chronic pain; E66.01 Morbid (severe) obesity due to excess calories; Z88.8 Allergy status to other drugs, medicaments and biological substances; Z79.82 Long term (current) use of aspirin; Z79.899 Other long term (current) drug therapy

== ENCOUNTER → 2021-09-03 | Outpatient (CLI) | payer BC ==
[~2021-09-03] VITALS: Ht 154.9 cm; Wt 114.7 kg
[2021-09-03 09:21] VITALS: BP 142/78
--- NOTE | 2021-09-03 09:33 | NUR ---
Pain Clinic Assessment: 1. History of Osteoarthritis: B/L ANKLE B/L KNEES B/L HANDS History of Rheumatoid Arthritis: Not Applicable 2. Height: 5 ft. 1 in. 154.9 cm. Weight: 252.8 lb. oz. 114.670 kg. Patient's BMI: 47.8 3. Vital Signs: BP: 142/78 Pulse: 81 Resp: 20 Temp: 02 Sat: 97 ECG Mon: 4. Pain Intensity: 6 TO 7 TODAY 5. Fall Risk: Dizziness: N Needs help standing or walking: Y Fallen in the last 3 months: N Fall risk comments: 6. Patient on Blood Thinner: None 7. History of Hypertension: Y 8. Opioid Therapy greater than 6 weeks: Y Opiate Contract Signed: 01/30/16 9. Risk Assessment Tool Provided: 1-LOW 10. Functional Assessment Tool: 11. Recreational Drug Use: Never Drug Type: Tobacco Use: Never Smoker Tobacco Type: Amount or Packs/day: How Many Years: Alcohol Use: Yes Frequency: Special Occasions Quant:
== END ==
LOC: PAIN 08:38
PROVIDERS: ATTEND Clinical Nurse Specialist Adult Health
DX: M47.27 Other spondylosis with radiculopathy, lumbosacral region (principal); G89.29 Other chronic pain; M48.061 Spinal stenosis, lumbar region without neurogenic claudication; M54.16 Radiculopathy, lumbar region; M19.90 Unspecified osteoarthritis, unspecified site; Z79.899 Other long term (current) drug therapy; Z88.8 Allergy status to other drugs, medicaments and biological substances